=== PATIENT | female | born 1955 | race Caucasian/White ===

== ENCOUNTER → 2017-05-11 | Outpatient (CLI) | payer OTHER ==
[~2017-05-11] MED LIST: ALBINS NEB; ALBUAER19 INH; CPR500 PO; CYCL10TA6 PO; FEXO1TAB46 PO; FLNIN/ NAE; FLUO0.05 TOP; FLUO0.0543 TOP; GUAISYP4 PO; LISI-461 PO; MTR500 PO; PARO30TA4 PO; Promethazine/Codeine PO; RANI300T PO; SNG10 PO; SRVDIN60 INH; WLLSR/200 PO; ZOLP10TA6 PO
--- NOTE | 2017-05-11 10:32 | DIAGNOSTIC IMAGING REPORT ---
ABDOMEN AND PELVIS CT WITH ORAL CONTRAST CT DOSE: 404.80 mGy.cm HISTORY: Left upper and lower abdominal pain. DIVERTICULITIS TECHNIQUE: Multiaxial CT images of the abdomen and pelvis were performed following the use of oral contrast. A dose lowering technique was utilized adhering to the principles of ALARA. COMPARISON STUDY: Abdomen and pelvis CT 01/21/2016. FINDINGS: The lung bases are clear. No pneumoperitoneum. No pneumatosis. No suspicious lytic or blastic osseous lesions. Small fat-containing right inguinal hernia. There are 2 diverticula within the second portion of the duodenum with the largest measuring 2 cm. Cholecystectomy. The unenhanced liver, spleen, kidneys, adrenal glands, and pancreas are unremarkable. No retroperitoneal lymphadenopathy. The bladder is now well-distended but appears unremarkable. The uterus and bilateral adnexa are within normal limits. Anastomotic suture material at the rectosigmoid junction. Colonic diverticulosis. No bowel wall thickening or obstruction. IMPRESSION: 1. No bowel wall thickening or obstruction. 2. Colonic diverticulosis. 3. Postoperative changes as described above. Electronically signed by: Goyo Méndez M.D. 05/11/2017 10:30 AM Dictated Date/Time: 05/11/2017 10:16 AM
== END | disposition home or self-care (01) ==
LOC: C.CTS 09:16
PROVIDERS: ATTEND Family Medicine
DX: K57.32 Diverticulitis of large intestine without perforation or abscess without bleeding (principal); K57.30 Diverticulosis of large intestine without perforation or abscess without bleeding

== ENCOUNTER 2019-03-03 09:19 | Inpatient (IN) ==
[~2019-03-03 09:19] MED LIST changes: -ALBINS NEB; -ALBUAER19 INH; -CPR500 PO; -CYCL10TA6 PO; -FEXO1TAB46 PO; -FLNIN/ NAE; -FLUO0.05 TOP; -FLUO0.0543 TOP; -GUAISYP4 PO; -LISI-461 PO; -MTR500 PO; -PARO30TA4 PO; -Promethazine/Codeine PO; -RANI300T PO; -SNG10 PO; +SODIUM CHLORIDE 0.9% 1000ML 1,000 ML IV SCH; -SRVDIN60 INH; -WLLSR/200 PO; -ZOLP10TA6 PO
--- OUTSIDE RECORDS SUMMARY | 2019-03-03 09:21 | External Medical Summary | Continuity of Care Document ---
:1955 Author Name Trey Solano, Provider Address Unavailable Unavailable , Care Team Providers Name Role Phone Mendoza Jaime M.D. Unavailable [email or web address] JOSE MIGUEL DAVENPORT Unavailable Unavailable Unavailable Unavailable Unavailable Problems Chronic sinusitis (473.9) (J32.9) Esophageal reflux (530.81) (K21.9) Diverticulitis, colon (562.11) (K57.32) Iron deficiency anemia (280.9) (D50.9) Polyp of corpus uteri (621.0) (N84.0) Nasal polyps (471.9) (J33.9) Dyslipidemia (272.4) (E78.5) Impaired fasting glucose (790.21) (R73.01) Benign essential hypertension (401.1) (I10) Allergic rhinitis (477.9) (J30.9) Asthma, persistent (493.90) Cough (786.2) (R05) SOB (shortness of breath) (786.05) (R06.02) Allergies and Adverse Reactions Amoxicillin TABS (Allergy) Reaction: Fabián sea Aspirin TABS (Allergy) Reaction: Other Augmentin TABS (Allergy) Reaction: Nause a Morphine Derivatives (Allergy) Reaction: Other Opioid Analgesics (Allergy) Reaction: Other Animal dander - Cats (Allergy) Reaction: Other Animal dander - Dogs (Allergy) Grass (Allergy) Shrimp (Allergy) Reaction: Hives Trees (Allergy) Medications Zolpidem Tartrate 10 MG Oral Tablet; TAKE 1 TABLET AT BEDTIM E NEEDED. Refills: 0 Albuterol Sulfate (2.5 MG/3ML) 0.083% In halation Nebulization Solution; USE 1 UNIT DOSE IN NEBULIZER EVERY 4 TO 6 HOURS NEEDED. 3 ML Plas Cont (125 Plas Conts) Quantity: 1 Refills: 5 Xopenex HFA 45 MCG/ACT Inhalation Aeroso l; INHALE 1 PUFF EVERY 4 HOURS NEEDED. Refills: 0 buPROPion HCl - 100 MG Oral Tablet; TAKE 1 TABLET TWICE HOLLY Y. Refills: 0 PARoxetine HCl - 30 MG Oral Tablet; TAKE 1 TABLET DAILY D IRECTED. Refills: 0 Lisinopril 10 MG Oral Tablet; TAKE 1 TABLET DAILY. Quantity: 30 Refills: 5 Albuterol Sulfate HFA 108 MCG/ACT AERS; INHALE 2 PUFFS FOUR TIMES DAILY DIRECTED. Refills: 0 Promethazine-Codeine 6.25-10 MG/5ML Oral Syrup; TAKE 5 ML EVERY 4 TO 6 HOURS NEEDED FOR COUGH. Refills: 0 Fluocinonide 0.05 % External Ointment; A PPLY SPARINGLY TO AFFECTED AREA(S) TWICE DAILY 60 GM Tube Quantity: 1 Refills: 1 Cyclobenzaprine HCl - 10 MG Oral Tablet; TAKE 1 TABLET AT BE DTIME NEEDED. Refills: 0 Montelukast Sodium 10 MG Oral Tablet; TAKE 1 TABLET DAILY. 90 Tablet Bottle Quantity: 1 Refills: 3 raNITIdine HCl - 300 MG Oral Tablet; TAKE 1 TABLET AT BEDTIM E. Refills: 0 Fluticasone Propionate 50 MCG/ACT Nasal Suspension; USE 2 SPRAYS IN EACH NOSTRIL TWICE A DAY 16 GM Bottle Quantity: 1 Refills: 5 buPROPion HCl ER (SR) 200 MG Oral Tablet Extended Release 12 Hour; TAKE 1 TABLET TWICE DAILY WITH THE 100 MG DOSE. Refills: 0 Tanya 180 MG TABS; TAKE 1 TABLET DAILY. Refills: 0 Simvastatin 20 MG Oral Tablet; TAKE 1 TABLET AT BEDTIME Quantity: 90 Refills: 1 Ipratropium [place] 0.02 % Inhalation So lution; USE 1 UNIT DOSE IN NEBULIZER 4 TIMES DAILY. 2.5 ML Plas Cont (60 Plas Co nts) Quantity: 2 Refills: 5 Procedures History of Appendectomy Status: Complete d History of Cholecystotomy Status: Comple toribio Immunizations Immunizations not documented Social History - Smoking Status Never smoker Plan of Treatment Planned Observations Planned Goals not documented Results No Known Results Results not documented Encounters Appointment; Mendoza Jaime M.D. 26-May-2016 11:15 Encounter Diagnosis: Problem not documented
[2019-03-03] MEDS ORDERED: OPTIRAY 320 125ml IV PRN (09:28)
[2019-03-03] MEDS ORDERED: TPA for Stroke IV STA (09:35)
--- NOTE | 2019-03-03 09:38 | CT Scan Report ---
CT angio head w con HISTORY: Mental status change cva TECHNIQUE: Multiaxial CT angiography of the head was performed IV contrast: None. Maximum intensit y projection images were also obtained. A dose lowering technique was utilized adhering to the princ ipldelta of JOEL. COMPARISON: None. FINDINGS: There is no mass, hematoma, midline shift, or acute infarct. Visualized intracranial customer marketing intern al carotid arteries, distal vertebral arteries, and basilar artery are widely patent. There is no sig nificant stenosis, occlusion, or aneurysm seen within the bilateral ACAs, MCAs, or cylinder inspector and tester. IMPRESSION: No significant stenosis, occlusion, or aneurysm within the [place]. ACT 112: Negative or not required by law. The above report was generated using voice recognition software. It may contain grammatical, syntax or spelling errors. Electronically signed by: Doroteo Mccord M.D. 03/03/2019 9:37 AM
--- NOTE | 2019-03-03 09:42 | CT Scan Report ---
HEAD CT NONCONTRAST CT DOSE: HISTORY: Stroke symptoms. TECHNIQUE: Multiaxial CT images of the head were performed without the use of intravenous contrast. A utomated exposure control was utilized for this study. A dose lowering technique was utilized adheri ng to the principles of ALARA. Comparison: Head CT 01/21/2016. Findings: Postoperative changes within the paranasal sinuses with a few small nasal polyps, unchanged . The calvarium and skull base are intact. The ventricles and sulci are within normal limits. There i s no mass, hematoma, midline shift, or acute infarct. Impression: No significant change compared to the prior study. No acute intracranial abnormality. ACT 112: Negative or not required by law. Electronically signed by: Goyo Méndez M.D. 03/03/2019 9:41 AM
--- NOTE | 2019-03-03 09:43 | CT Scan Report ---
CT angio neck with con HISTORY: Mental status change cva TECHNIQUE: Multiaxial CT angiography of the neck was performed IV contrast: 100 cc nonionic All leoncio urements were calculated based on NASCET criteria. Maximum intensity projection images were also obt ained. A dose lowering technique was utilized adhering to the principles of ALARA. COMPARISON STUDY: None. FINDINGS: The aortic arch and proximal great vessels are widely patent. There is no significant sten osis, occlusion, or dissection identified within the bilateral common carotid, internal carotid, or v ertebral arteries. IMPRESSION: No significant stenosis, occlusion, or dissection identified within the carotid or vertebral arteries . ACT 112: Negative or not required by law. The above report was generated using voice recognition software. It may contain grammatical, syntax or spelling errors. Electronically signed by: Doroteo Mccord M.D. 03/03/2019 9:41 AM
[2019-03-03] MEDS ORDERED: Alteplase Bolus 7 MG in SYRINGE 0 ML IV ONE (09:45)
[2019-03-03] MEDS ORDERED: ALTEPLASE, RECOMBINANT 62 MG in EMPTY BAG 0 ML IV ONE (09:46)
[2019-03-03] MEDS ORDERED: PRIMARY PLUMSET, PE LINED TUBING, 113 IN, NON-DEHP (2260-0500) IV ONE (09:46)
--- NOTE | 2019-03-03 09:55 | Emergency Department Note ---
Entered by Ila Marin acting as a scribe for History of Present Illness General Chief complaint: Stroke Alert Source: patient and EMS History of Present Illness Onset (ago): minute(s) (58) Location: head Pain Consistency: + other (episode) Quality: + other (stroke-like symptoms) Associated symptoms: + other (bilateral leg weakness, aphasia) The patient is a 64 year old female that is presenting to the Emergency Room with complaints of an episode of stroke-like symptoms that started 58 minutes ago at 0828 this morning. The patient reports bilateral leg weakness. The patie nt called her brother this morning at approximately 8:28 AM. She states that she did not feel right. She was very concerned that she was having a stroke. The patient arrived at the emergency department via ambulance. Received a prehospital notification about the patient. She was made a stroke alert prior to arrival because of right-sided weakness and aphasia. The patient states that she felt symptoms acutely this morning. She denies having any recent trauma but does complain of a headache which is frontal in nature. She denies having any history of anxiety or recent stressors. The patient does have a family history of aneurysms. The patient did not take any medications prior to arrival. She was noted to have difficulty speaking by the prehospital personnel. The patient denies having any chest pain or abdominal pain. She denies having any shortness of breath. Home Medications Home Medications Medication Instructions Recorded Confirmed Type albuterol sulfate 2 puff INHALATION QID PRN 03/03/19 03/03/19 History atorvastatin 40 mg PO HS 03/03/19 03/03/19 History bupropion HCl 300 mg PO QAM 03/03/19 03/03/19 History duloxetine 60 mg PO QAM 03/03/19 03/03/19 History fluticasone furoate-vilanterol 1 inh INHALATION DAILY PRN 03/03/19 03/03/19 History [Breo Ellipta] lisinopril-hydrochlorothiazide 1 tab PO QAM 03/03/19 03/03/19 History metformin 1,000 mg PO QAM 03/03/19 03/03/19 History omeprazole 20 mg PO BID 03/03/19 03/03/19 History zolpidem 5 mg PO HS 03/03/19 03/03/19 History Allergies Allergy/AdvReac Type Severity Reaction Status Date / Time aspirin Allergy Unknown UNKNOWN Verified 03/03/19 10:38 morphine Allergy Unknown Verified 03/03/19 10:38 shrimp Allergy Unknown HIVES Verified 03/03/19 10:38 amoxicillin AdvReac Unknown NAUSEA Verified 03/03/19 10:38 clavulanic acid AdvReac Unknown NAUSEA Verified 03/03/19 10:38 Opioid Analgesics Allergy Unknown UNKNOWN Uncoded 03/03/19 10:38 Unclassified Drugs Allergy Unknown CATS/DOGS/G Uncoded 03/03/19 10:38 RASS/TREES Past Med/Surg History Medical History (Updated 03/03/19 @ 12:29 by Marlene Merritt PA-C) Adjustment reaction (Inactive) Anxiety (Chronic) Asthma (Chronic) Bronchitis Depression (Chronic) Diabetes mellitus, type II Dyslipidemia (Chronic) GERD (gastroesophageal reflux disease) (Chronic) History of right bundle branch block (RBBB) (Chronic) "1st noted in 2001" Hypertension (Chronic) RADHA (iron deficiency anemia) (Chronic) SOB (shortness of breath) (Inactive) Surgical History H/O colonoscopy (Inactive) H/O cystoscopy (Inactive) History of esophagogastroduodenoscopy (EGD) (Inactive) History of mandibular surgery (Inactive) S/P appendectomy (Inactive) S/P blepharoplasty (Inactive) S/P cholecystectomy (Inactive) S/P foot surgery (Inactive) S/P partial colectomy (Inactive) Status post hysteroscopic polypectomy (Inactive) Family History Other Asthma Breast cancer Diabetes Hypertension Social History Preferred Language: Italian Communication Ability: Effective Spike Driver Required: No Beliefs That Will Affect Care: None marital status: Single Current Living Situation: Family Current Living Situation Comment: lives with nephew current occupational status: unemployed and disabled Other Information That Helps Us Care for You: No Feels Safe at Home: Yes Safety Concerns: Feels Safe At This Time Smoking Status: Never smoker Do You Dip or Chew Tobacco: No ; Second Hand Exposure: No ; Tobacco Cessation Education Requested by Patient: No Hx Alcohol Use: No Hx Substance Use: No Review of Systems See HPI for pertinent positives & negatives. and A total of 10 systems reviewed and were otherwise negative Physical Exam Vital Signs Vital Signs - 24 hr 03/03/19 09:36 03/03/19 09:38 03/03/19 09:40 Temperature 37.0 C Temperature Source Oral Pulse Rate 105 H 105 H 105 H Pulse Rate [Left] Pulse Rate from SpO2 Sensor 106 H 105 H Respiratory Rate 20 25 H 23 Respiratory Effort / Characteristics Non-Labored Spontaneous Respiratory Depth Normal Blood Pressure 152/122 H 152/122 H Blood Pressure [Left Arm] Blood Pressure Mean 132 134 Blood Pressure Mean [Left Arm] Blood Pressure Position Lying Blood Pressure Position [Left Arm] Pulse Oximetry 96 96 96 Oxygen Delivery Method Room Air Sepsis Recent Fever Within 48 Hours No Sepsis New/Unexplained Change in Mental Status No Sepsis Action Taken by Nursing No Action Required 03/03/19 09:45 03/03/19 09:51 03/03/19 10:00 Temperature Temperature Source Pulse Rate 106 H 104 H Pulse Rate [Left] Pulse Rate from SpO2 Sensor 106 H 104 H Respiratory Rate 23 18 Respiratory Effort / Characteristics Respiratory Depth Blood Pressure Blood Pressure [Left Arm] Blood Pressure Mean Blood Pressure Mean [Left Arm] Blood Pressure Position Blood Pressure Position [Left Arm] Pulse Oximetry 95 96 Oxygen Delivery Method Room Air Sepsis Recent Fever Within 48 Hours Sepsis New/Unexplained Change in Mental Status Sepsis Action Taken by Nursing 03/03/19 10:01 03/03/19 10:10 03/03/19 10:11 Temperature Temperature Source Pulse Rate 104 H 106 H 104 H Pulse Rate [Left] 105 H 104 H Pulse Rate from SpO2 Sensor 104 H 106 H 106 H Respiratory Rate 24 28 H 25 H Respiratory Effort / Characteristics Non-Labored Spontaneous Non-Labored Spontaneous Respiratory Depth Blood Pressure 152/98 H 154/90 H Blood Pressure [Left Arm] 152/98 H 154/90 H Blood Pressure Mean 111 92 Blood Pressure Mean [Left Arm] 116 111 Blood Pressure Position Blood Pressure Position [Left Arm] Lying Lying Pulse Oximetry 95 96 96 Oxygen Delivery Method Room Air Room Air Sepsis Recent Fever Within 48 Hours Sepsis New/Unexplained Change in Mental Status Sepsis Action Taken by Nursing 03/03/19 10:20 03/03/19 10:21 03/03/19 10:30 Temperature Temperature Source Pulse Rate 102 H 103 H 103 H Pulse Rate [Left] Pulse Rate from SpO2 Sensor 103 H 102 H 102 H Respiratory Rate 19 22 22 Respiratory Effort / Characteristics Respiratory Depth Blood Pressure 160/104 H 140/104 H Blood Pressure [Left Arm] Blood Pressure Mean 118 120 Blood Pressure Mean [Left Arm] Blood Pressure Position Blood Pressure Position [Left Arm] Pulse Oximetry 96 95 95 Oxygen Delivery Method Sepsis Recent Fever Within 48 Hours Sepsis New/Unexplained Change in Mental Status Sepsis Action Taken by Nursing 03/03/19 10:32 03/03/19 10:40 Temperature Temperature Source Pulse Rate 102 H 100 H Pulse Rate [Left] Pulse Rate from SpO2 Sensor 102 H 101 H Respiratory Rate 25 H 22 Respiratory Effort / Characteristics Respiratory Depth Blood Pressure 149/99 H Blood Pressure [Left Arm] Blood Pressure Mean 121 Blood Pressure Mean [Left Arm] Blood Pressure Position Blood Pressure Position [Left Arm] Pulse Oximetry 95 96 Oxygen Delivery Method Sepsis Recent Fever Within 48 Hours Sepsis New/Unexplained Change in Mental Status Sepsis Action Taken by Nursing GENERAL: The patient is awake and alert. The patient is very anxious appearing. Her speech is stuttering. EYES: The conjunctivae are clear. The pupils are round and reactive. EARS, NOSE, MOUTH AND THROAT: The nose is without any evidence of any deformity. Mucous membranes are moist.Tongue is midline NECK: The neck is nontender and supple. RESPIRATORY: Normal respiratory effort is noted. There is no evidence of w heezing rhonchi or rales to auscultation. CARDIOVASCULAR: Tachycardic rate with regular rhythm was noted. No definite murmur was noted. GASTROINTESTINAL: The abdomen is soft. Bowel sounds are present in all quadrants. Abdomen is nontender. MUSCULOSKELETAL/EXTREMITIES: There is no evidence of gross deformity. Full range of motion is noted in the hips and shoulders. SKIN: There is no obvious evidence of any rash. There are no petechiae, pallor or cyanosis noted. NEUROLOGIC: Patient is awake alert and oriented x3. Her speech is stuttering but her words are mostly understandable. Strength was diminished in both lower extremities. Strength was diminished in both upper extremities. Vegetable Canner strength is diminished in the right upper extremity compared to left but only minimally. Patient is able to hold the legs off the bed for greater than 5 seconds. Course Course 905: Medical Command call was taken and a stroke alert was called. 919: Stroke alert was called after Medical Command call. Patient was taken straight to CT upon arrival and a history and physical were performed at this time. 0924: I discussed the patients case with Dr. Mesa, Neurology [facility], who will evaluate the patient via the Telestroke. 0931: Patient arrived in room A01. tPA has been ordered pending CT results and patient evaluation. 0959: 152/102 BP at this time. Labetalol is being ordered to lower the patients blood pressure. Speech is improving. 1005: After evaluating the patient, Dr. Mesa patient sx rapidly improving no clear indication for tPA at this time. BP is 152/98 without treatment. Holding Labetalol pending repeat BP check. 1030: I discussed the patients case with DOMINIC Hoffman, who will evaluate the patient for further management and care with Dr. Guerin as the attending physician. Administered Medications Enoxaparin Sodium (Lovenox) 40 mg SQ Q24H QUINCY Stop: 04/02/19 13:59 Last Admin: 03/03/19 16:42 Dose: 40 mg Documented by: [id number] Insulin Aspart (Novolog Flexpen) 0 units SC ACHS QUINCY Stop: 04/02/19 13:27 Last Admin: 03/03/19 17:23 Dose: Not Given Documented by: [id number] Cosigned by: [id number] Admin: 03/03/19 15:34 Dose: Not Given Documented by: [id number] Cosigned by: [id number] Discontinued Medications Alteplase, Recombinant (Activase For Stroke) 1 ea IV NOW STA; Protocol Stop: 03/03/19 09:36 Last Admin: 03/03/19 16:03 Dose: Not Given Documented by: [id number] Sodium Chloride (Nss 1000ml) 1,000 mls @ 50 mls/hr IV .Q20H QUINCY Stop: 04/02/19 09:14 Last Infusion: 03/03/19 16:04 Dose: 0 mls/hr Documented by: [id number] Admin: 03/03/19 10:04 Dose: 50 mls/hr Documented by: [id number] Alteplase, Recombinant 7 mg/ (Syringe) 7 mls @ 7 mls/min IV ONCE ONE Stop: 03/03/19 09:46 Last Admin: 03/03/19 16:03 Dose: Not Given Documented by: [id number] Alteplase, Recombinant 62 mg/ (EMPTY BAG) 62 mls @ 62 mls/hr IV ONCE ONE Stop: 03/03/19 09:47 Last Admin: 03/03/19 16:03 Dose: Not Given Documented by: [id number] Ioversol (Optiray 320 125ml) 119 ml IV ONCE PRN PRN Reason: Interaction Checking Stop: 03/07/19 09:27 Last Admin: 03/03/19 09:29 Dose: 119 ml Documented by: [id number] Labetalol HCl (Normodyne) 20 mg IV NOW STA Stop: 03/03/19 10:02 Last Admin: 03/03/19 10:44 Dose: Not Given Documented by: [id number] Medical Decision Making Differential Diagnosis Differential Diagnosis includes but is not limited to ischemic Stroke, hemorrhagic stroke, bells palsy, mass, neoplasm, migraine headache, seizure, subarachnoid hemorrhage, TIA, and transient global amnesia. Medical Records Attestation: I reviewed the patient's medical records. Home Medications Current Medication List: was personally reviewed by me Laboratory Data Attestation: I reviewed the patient's lab results. Result diagrams: 03/03/19 09:40 03/03/19 09:40 Lab Results 03/03/19 03/03/19 03/03/19 Range/Units 09:40 09:40 09:40 WBC 9.14 (4.8-10.8) K/uL RBC 3.95 L (4.2-5.4) M/uL Hgb 11.3 L (12.0-16.0) g/dL Hct 35.2 L (37-47) % MCV 89.1 (80-100) fL MCH 28.6 (25-34) pg MCHC 32.1 (32-36) g/dL RDW Std Deviation 41.3 (36.4-46.3) fL RDW Coeff of Nilda 12.8 (11.5-14.5) % Plt Count 355 (130-400) K/uL MPV 9.2 (7.4-10.4) fL Immature Gran % (Auto) 0.2 % Neut % (Auto) 62.4 % Lymph % (Auto) 24.3 % [place] % (Auto) 10.9 % Eos % (Auto) 1.8 % Baso % (Auto) 0.4 % Immature Gran # (Auto) 0.02 (0.00-0.02) K/uL Neut # (Auto) 5.70 (1.4-6.5) K/uL Lymph # (Auto) 2.22 (1.2-3.4) K/uL [place] # (Auto) 1.00 H (0.11-0.59) K/uL Eos # (Auto) 0.16 (0-0.5) K/uL Baso # (Auto) 0.04 (0-0.2) K/uL PT 10.5 (9.0-12.0) Seconds INR 1.0 (0.9-1.1) APTT 25.1 (21.0-31.0) Seconds PTT Ratio 0.9 Sodium 133 L (136-145) mmol/L Potassium 4.2 (3.5-5.1) mmol/L Chloride 101 (98-107) mmol/L Carbon Dioxide 26 (21-32) mmol/L Anion Gap 6.0 (3-11) BUN 16 (7-18) mg/dl Creatinine 1.12 (0.6-1.2) mg/dl Est Cr Clr Drug Dosing 48.2 ml/min Est GFR ( Amer) 60.5 Est GFR (Non-Af Amer) 52.2 BUN/Creatinine Ratio 14.5 (10-20) Glucose 148 H (70-99) mg/dl POC Glucose (70-99) Calcium 8.3 L (8.5-10.1) mg/dl Magnesium 1.9 (1.8-2.4) mg/dl Total Bilirubin 0.4 (0.2-1) mg/dl AST 24 (15-37) U/L ALT 61 (12-78) U/L Alkaline Phosphatase 88 (45-117) U/L Troponin I < 0.015 (0-0.045) ng/ml Total Protein 6.7 (6.4-8.2) gm/dl Albumin 3.3 L (3.4-5.0) gm/dl Globulin 3.4 (2.5-4.0) gm/dl Albumin/Globulin Ratio 1.0 (0.9-2) Specimen Hemolysis Blood Type Antibody Screen 03/03/19 03/03/19 Range/Units 09:40 09:40 WBC (4.8-10.8) K/uL RBC (4.2-5.4) M/uL Hgb (12.0-16.0) g/dL Hct (37-47) % MCV (80-100) fL MCH (25-34) pg MCHC (32-36) g/dL RDW Std Deviation (36.4-46.3) fL RDW Coeff of Nilda (11.5-14.5) % Plt Count (130-400) K/uL MPV (7.4-10.4) fL Immature Gran % (Auto) % Neut % (Auto) % Lymph % (Auto) % [place] % (Auto) % Eos % (Auto) % Baso % (Auto) % Immature Gran # (Auto) (0.00-0.02) K/uL Neut # (Auto) (1.4-6.5) K/uL Lymph # (Auto) (1.2-3.4) K/uL [place] # (Auto) (0.11-0.59) K/uL Eos # (Auto) (0-0.5) K/uL Baso # (Auto) (0-0.2) K/uL PT (9.0-12.0) Seconds INR (0.9-1.1) APTT (21.0-31.0) Seconds PTT Ratio Sodium (136-145) mmol/L Potassium (3.5-5.1) mmol/L Chloride (98-107) mmol/L Carbon Dioxide (21-32) mmol/L Anion Gap (3-11) BUN (7-18) mg/dl Creatinine (0.6-1.2) mg/dl Est Cr Clr Drug Dosing ml/min Est GFR ( Amer) Est GFR (Non-Af Amer) BUN/Creatinine Ratio (10-20) Glucose (70-99) mg/dl POC Glucose 142 H (70-99) Calcium (8.5-10.1) mg/dl Magnesium (1.8-2.4) mg/dl Total Bilirubin (0.2-1) mg/dl AST (15-37) U/L ALT (12-78) U/L Alkaline Phosphatase (45-117) U/L Troponin I (0-0.045) ng/ml Total Protein (6.4-8.2) gm/dl Albumin (3.4-5.0) gm/dl Globulin (2.5-4.0) gm/dl Albumin/Globulin Ratio (0.9-2) Specimen Hemolysis Blood Type A Negative Antibody Screen NEGATIVE Imaging Data Radiologist's Impression: Radiology results as stated below per my review and the radiologist's interpretation: XR chest 1V portable CLINICAL HISTORY: cva dyspnea COMPARISON STUDY: 01/21/2016 FINDINGS: The bones soft tissues and hemidiaphragms are normal. The cardiomediastinal silhouette is normal. The lungs are clear. The pulmonary vasculature is normal. IMPRESSION: Negative chest. ACT 112: Negative or not required by law. The above report was generated using voice recognition software. It may contain grammatical, syntax or spelling errors. Electronically signed by: Doroteo Mccord M.D. 03/03/2019 10:[address] CT DOSE: HISTORY: Stroke symptoms. TECHNIQUE: Multiaxial CT images of the head were performed without the use of intravenous contrast. Automated exposure control was utilized for this study. A dose lowering technique was utilized adhering to the principles of ALARA. Comparison: Head CT 01/21/2016. Findings: Postoperative changes within the paranasal sinuses with a few small nasal polyps, unchanged. The calvarium and skull base are intact. The ventricles and sulci are within normal limits. There is no mass, hematoma, midline shift, or acute infarct. Impression: No significant change compared to the prior study. No acute intracranial abnormality. ACT 112: Negative or not required by law. Electronically signed by: Goyo Méndez M.D. 03/03/2019 9:[address] angio head w con HISTORY: Mental status change cva TECHNIQUE: Multiaxial CT angiography of the head was performed IV contrast: None. Maximum intensity projection images were also obtained. A dose lowering technique was utilized adhering to the principles of ALARA. COMPARISON: None. FINDINGS: There is no mass, hematoma, midline shift, or acute infarct. Visualized intracranial internal carotid arteries, distal vertebral arteries, and basilar artery are widely patent. There is no significant stenosis, occlusion, or aneurysm seen within the bilateral ACAs, MCAs, or crop adjuster. IMPRESSION: No significant stenosis, occlusion, or aneurysm within the [place]. ACT 112: Negative or not required by law. The above report was generated using voice recognition software. It may contain grammatical, syntax or spelling errors. Electronically signed by: Doroteo Mccord M.D. 03/03/2019 9:[address] angio neck with con HISTORY: Mental status change cva TECHNIQUE: Multiaxial CT angiography of the neck was performed IV contrast: 100 cc nonionic All measurements were calculated based on NASCET criteria. Maximum intensity projection images were also obtained. A dose lowering technique was utilized adhering to the principles of ALARA. COMPARISON STUDY: None. FINDINGS: The aortic arch and proximal great vessels are widely patent. There is no significant stenosis, occlusion, or dissection identified within the bilateral common carotid, internal carotid, or vertebral arteries. IMPRESSION: No significant stenosis, occlusion, or dissection identified within the carotid or vertebral arteries. ACT 112: Negative or not required by law. The above report was generated using voice recognition software. It may contain grammatical, syntax or spelling errors. Electronically signed by: Doroteo Mccord M.D. 03/03/2019 9:41 AM ECG Data Attestation: I personally reviewed and interpreted this ECG as follows: Indication: + weakness Rate (beats per minute): 104 Rhythm: + sinus tachycardia ECG Intervals/blocks: + Right Bundle branch block ECG Findings: no PVCs Comparison ECG Date: from (01/21/16) Change: no significant change Blood Pressure Blood Pressure Findings: Elevated blood pressure Blood Pressure Disposition: elevated BP felt to be situational MDM Narrative The patient is a 64-year-old female who presented to the emergency department for an evaluation of strokelike symptoms. The patient was having aphasia but also was noted to have right-sided weakness prior to arrival. On my examination the patient appears to have diminished strength which is bilateral in the lower extremities but also has stuttering speech. The patient's symptoms seem to wax and wane while she was in the emergency department. CT of the head did not show any acute disease. The patient had a normal CT angiography the head and neck. I discussed the patient's condition with the stroke neurologist at [facility]. At this time TPA was not recommended given the patient's waxing and waning of her symptoms. I discussed the patient's condition with her. I also discussed the patient's laboratory and radiographic studies with her and her family members. I discussed her case with the on-call [facility] hospitalist group. They have agreed to evaluate the patient in the emergency department for further management and disposition. Impression & Plan Aphasia, Weakness, Neurological symptoms Discharge Plan Visit Data *Final* Discharge Date/Time: 03/03/19 12:02 Chief Complaint: Stroke Alert ED Provider: [facility] Discharge Problem: Aphasia, Weakness, Neurological symptoms Patient Disposition: Admitted As Inpatient Discharge Instructions Interventions: ED Discharge Assessment Last Done: 03/03/19 12:02 The scribe's documentation has been prepared under my direction and personally reviewed by me in its entirety. I confirm that the note above accurately reflects all work, treatment, procedures, and medical decision making performed by me.
[2019-03-03 09:59] LABS: Basophils # (auto) 0.04 K/uL (0-0.2); Basophils % (auto) 0.4 %; Eosinophils # (auto) 0.16 K/uL (0-0.5); Eosinophils % (auto) 1.8 %; Hematocrit (blood only) 35.2 % (37-47); Hemoglobin 11.3 g/dL (12.0-16.0); Immature Granulocytes # (auto) 0.02 K/uL (0.00-0.02); Immature Granulocytes % (auto) 0.2 %; Lymphocytes # (auto) 2.22 K/uL (1.2-3.4); Lymphocytes % (auto) 24.3 %; Mean Corpuscular Hemoglobin 28.6 pg (25-34); Mean Corpuscular Hgb Conc 32.1 g/dL (32-36); Mean Corpuscular Volume 89.1 fL (80-100); Mean Platelet Volume 9.2 fL (7.4-10.4); Monocytes % (auto) 10.9 %; Neutrophils % (auto) 62.4 %; Platelet Count 355 K/uL (130-400); RDW Coefficient of Variation 12.8 % (11.5-14.5); RDW Standard Deviation 41.3 fL (36.4-46.3); Red Blood Count 3.95 M/uL (4.2-5.4); White Blood Count 9.14 K/uL (4.8-10.8)
[2019-03-03] MEDS ORDERED: LABETALOL HCL IV 5 MG/ML 20ML IV STA (10:01)
[2019-03-03 10:12] LABS: Partial Thromboplastin Ratio 0.9; Partial Thromboplastin Time 25.1 Seconds (21.0-31.0); Prothrombin Time 10.5 Seconds (9.0-12.0)
[2019-03-03 10:24] LABS: Alanine Aminotransferase 61 U/L (12-78); Albumin Level 3.3 gm/dl (3.4-5.0); Alkaline Phosphatase 88 U/L (45-117); Aspartate Aminotransferase 24 U/L (15-37); BUN Creatinine Ratio 14.5 (10-20); Bilirubin,Total 0.4 mg/dl (0.2-1); Blood Urea Nitrogen 16 mg/dl (7-18); Calcium 8.3 mg/dl (8.5-10.1); Carbon Dioxide 26 mmol/L (21-32); Chloride 101 mmol/L (98-107); Creatinine Clr Calc Pharmacy 48.2 ml/min; Est GFR (African American) 60.5; Est GFR (Non-African American) 52.2; Globulin 3.4 gm/dl (2.5-4.0); Glucose 148 mg/dl (70-99); Magnesium 1.9 mg/dl (1.8-2.4); Potassium 4.2 mmol/L (3.5-5.1); Sodium 133 mmol/L (136-145); Total Protein 6.7 gm/dl (6.4-8.2); Troponin I < 0.015 ng/ml (0-0.045)
--- NOTE | 2019-03-03 10:26 | XRay Report ---
XR chest 1V portable CLINICAL HISTORY: cva dyspnea COMPARISON STUDY: 01/21/2016 FINDINGS: The bones soft tissues and hemidiaphragms are normal. The cardiomediastinal silhouette is n ormal. The lungs are clear. The pulmonary vasculature is normal. IMPRESSION: Negative chest. ACT 112: Negative or not required by law. The above report was generated using voice recognition software. It may contain grammatical, syntax or spelling errors. Electronically signed by: Doroteo Mccord M.D. 03/03/2019 10:25 AM
--- NOTE | 2019-03-03 11:23 | History & Physical Report ---
Date of Service March 03, 2019 Assessment & Plan (1) Stroke-like symptoms: Pt is 64 y/o F with PMH DM II, HTN, dyslipidemia, anxiety, asthma, GERD presented to ER with c/o blurry vision and bilateral upper and lower paresthesias today starting at 8:00AM. Also reports stuttering and bilateral leg heaviness In ER initial P: 105 and BP: 152/122 down to 154/90 without any medications given. Corrected Na: 134 for glucose of 148. No other significant electrolyte abnormalities. Negative troponin. CTA HEAD: No significant stenosis, occlusion, or aneurysm within the samish of Francis. CTA NECK: No significant stenosis, occlusion, or dissection identified within the carotid or vertebral arteries. DDX: TIA, Stroke, anxiety -Had tele stroke eval in ER with Dr Mesa and no TPA was recommended -Tele to monitor for arrhythmias -Lipid panel, A1c in AM -MRI brain -Echo -PT/OT consult -Continue atorvastatin -Consider starting Plavix pending further workup and neurology recommendations -Neurology consult (2) Diabetes mellitus, type II: A1c: 6.7 on 07/04/18 -Hold metformin -Novolog sliding scale per protocol (3) Hypertension: -Continue lisinopril/HCTZ (4) Dyslipidemia: -Continue atorvastatin (5) Asthma: -Continue albuterol prn (6) Anxiety: -Continue duloxetine, bupropion (7) GERD (gastroesophageal reflux disease): -Continue PPI DVT Prophylaxis -Lovenox SQ Full Code as per discussion with pt Follows with Dr Ashton for routine care Pt was seen and care coordinated with Dr Pink. See addendum History of Present Illness Chief Complaint: Paresthesias, visual disturbance Primary Care Provider: Heidi Ashton MD Pt is 64 y/o F with PMH DM II, HTN, dyslipidemia, anxiety, asthma, GERD presented to ER with c/o visual disturbance and paresthesias today. Pt states approx 8:00AM today was reading newspaper when started with blurry vision followed by feeling shaky and had trouble talking and stuttering. Also reports feeling lightheaded and had posterior NAVARRETE. Reports paresthesias to head followed by paresthesias to bilateral arms and legs. She reports feeling bilateral leg "heaviness" and difficulty walking. Denies fall. Pt denies increased anxiety. She reports baseline tremor of arms. Denies fever/chills, diaphoresis, N/V/D/C, syncope, vision loss, neck pain, CP, SOB, orthopnea, palpitations, cough, sore throat, choking, otalgia, rhinorrhea, abdominal pain, extremity edema, rashes, urinary symptoms. Since being in ER pt reports NAVARRETE almost resolved and paresthesias are intermittent. Reports feels like strength has improved. She does report feels anxious since being in ER. Denies further blurry vision. Pt had tele stroke evaluation in ER and no TPA was recommended. Allergies Allergy/AdvReac Type Severity Reaction Status Date / Time aspirin Allergy Unknown UNKNOWN Verified 03/03/19 10:38 morphine Allergy Unknown Verified 03/03/19 10:38 shrimp Allergy Unknown HIVES Verified 03/03/19 10:38 amoxicillin AdvReac Unknown NAUSEA Verified 03/03/19 10:38 clavulanic acid AdvReac Unknown NAUSEA Verified 03/03/19 10:38 Opioid Analgesics Allergy Unknown UNKNOWN Uncoded 03/03/19 10:38 Unclassified Drugs Allergy Unknown CATS/DOGS/G Uncoded 03/03/19 10:38 RASS/TREES Home Medications Home Medications Medication Instructions Recorded Confirmed Type albuterol sulfate 2 puff INHALATION QID PRN 03/03/19 03/03/19 History atorvastatin 40 mg PO HS 03/03/19 03/03/19 History bupropion HCl 300 mg PO QAM 03/03/19 03/03/19 History duloxetine 60 mg PO QAM 03/03/19 03/03/19 History fluticasone furoate-vilanterol 1 inh INHALATION DAILY PRN 03/03/19 03/03/19 History [Breo Ellipta] lisinopril-hydrochlorothiazide 1 tab PO QAM 03/03/19 03/03/19 History metformin 1,000 mg PO QAM 03/03/19 03/03/19 History omeprazole 20 mg PO BID 03/03/19 03/03/19 History zolpidem 5 mg PO HS 03/03/19 03/03/19 History Past Med/Surg History Medical History (Updated 03/03/19 @ 12:29 by Marlene Merritt PA-C) Adjustment reaction (Inactive) Anxiety (Chronic) Asthma (Chronic) Bronchitis Depression (Chronic) Diabetes mellitus, type II Dyslipidemia (Chronic) GERD (gastroesophageal reflux disease) (Chronic) History of right bundle branch block (RBBB) (Chronic) "1st noted in 2001" Hypertension (Chronic) RADHA (iron deficiency anemia) (Chronic) SOB (shortness of breath) (Inactive) Surgical History H/O colonoscopy (Inactive) H/O cystoscopy (Inactive) History of esophagogastroduodenoscopy (EGD) (Inactive) History of mandibular surgery (Inactive) S/P appendectomy (Inactive) S/P blepharoplasty (Inactive) S/P cholecystectomy (Inactive) S/P foot surgery (Inactive) S/P partial colectomy (Inactive) Status post hysteroscopic polypectomy (Inactive) Family History Other Asthma Breast cancer Diabetes Hypertension Social History Preferred Language: Yi Communication Ability: Effective Fagot Heater Helper Required: No Beliefs That Will Affect Care: None marital status: Single Current Living Situation: Family Current Living Situation Comment: lives with nephew current occupational status: unemployed and disabled Other Information That Helps Us Care for You: No Feels Safe at Home: Yes Safety Concerns: Feels Safe At This Time Smoking Status: Never smoker Do You Dip or Chew Tobacco: No ; Second Hand Exposure: No ; Tobacco Cessation Education Requested by Patient: No Hx Alcohol Use: No Hx Substance Use: No Review of Systems Review of Systems: All systems reviewed & are unremarkable except as noted in HPI & below Physical Exam Physical Exam: General: no acute distress, WDWN Head: normocephalic, atraumatic Eyes: PERRL, EOM's intact, no nystagmus, conjunctiva non-injected, anicteric ENT: normal inspection external ears, nose, mucous membranes moist Neck: supple, trachea midline Lungs: clear, no respiratory distress, no wheezing/rhonchi/rales CV: RRR, no murmur, no pretibial edema Abd: normal BS, soft, non-tender Ext: no cyanosis, no calf tenderness Neuro: A&O x 3, mildly anxious appearing, ?decreased right lateral visual field (initial exam with right lateral visual field deficit followed by repeat with no reported deficit, Facial sensation is intact and symmetric, The face is strong and symmetric, Hearing grossly intact, Soft palate elevates symmetrically, +stuttering speech, Shoulder shrug intact, Tongue is midline, normal movement, no fasciculations, No pronator drift, 5/5 strength upper and lower extremities at time of exam, finger to nose intact Skin: warm, dry Results & Data Vital Signs (Past 12 Hours) Vital Signs Temp Pulse Pulse Resp BP BP Pulse Ox 03/03/19 10:40 100 H 22 149/99 H 96 03/03/19 10:32 102 H 25 H 95 03/03/19 10:30 103 H 22 140/104 H 95 03/03/19 10:21 103 H 22 95 03/03/19 10:20 102 H 19 160/104 H 96 03/03/19 10:11 104 H 104 H 25 H 154/90 H 154/90 H 96 03/03/19 10:10 106 H 28 H 96 03/03/19 10:01 104 H 105 H 24 152/98 H 152/98 H 95 03/03/19 10:00 104 H 18 96 03/03/19 09:51 106 H 23 95 03/03/19 09:40 105 H 23 96 03/03/19 09:38 105 H 25 H 152/122 H 96 03/03/19 09:36 37.0 C 105 H 20 152/122 H 96 Laboratory Results Short CBC 03/03/19 Range/Units 09:40 WBC 9.14 (4.8-10.8) K/uL Hgb 11.3 L (12.0-16.0) g/dL Hct 35.2 L (37-47) % Plt Count 355 (130-400) K/uL BMP 03/03/19 09:40 Sodium 133 L Potassium 4.2 Chloride 101 Carbon Dioxide 26 BUN 16 Creatinine 1.12 Glucose 148 H Calcium 8.3 L Cardiac Enzymes 03/03/19 Range/Units 09:40 Troponin I < 0.015 (0-0.045) ng/ml Liver Function 03/03/19 Range/Units 09:40 Total Bilirubin 0.4 (0.2-1) mg/dl AST 24 (15-37) U/L ALT 61 (12-78) U/L Alkaline Phosphatase 88 (45-117) U/L Albumin 3.3 L (3.4-5.0) gm/dl Diagnostic Findings CT HEAD: Impression: No significant change compared to the prior study. No acute intracranial abnormality. CTA HEAD: IMPRESSION: No significant stenosis, occlusion, or aneurysm within the samish of Francis. CTA NECK: IMPRESSION: No significant stenosis, occlusion, or dissection identified within the carotid or vertebral arteries. CXR: IMPRESSION: Negative chest. ECG Rate (beats per minute): 104 Rhythm: sinus rhythm Findings: + RBBB Code Status & VTE Plan VTE Prophylaxis Plan VTE Prophylaxis will be ordered: Yes Supervising Physician Co-Signing Physician Notes HISTORY: Record reviewed. Patient interviewed and examined in ED. Care coordinated with Marlene Merritt PA-C. Please refer to her documentation for complete history. Briefly, 64 YO female with history of hypertension, DM type 2, anxiety, depression, essential tremor, and other problems as noted. Experienced blurred vision, posterior headache, diffuse paresthesiae and weakness this morning while reading paper. Had difficulty speaking (has chronic speech impediment, but worse that usual). Headache and visual changes gradually improved. Still feels weak and has persistent paresthesiae (perioral, arms, legs). Had an episode of bilateral leg weakness last evening, but did not fall. Has been under a lot of stress due to recent passing of close friend; has also lost close family members in recent years. Not sleeping well. Problems with short term memory- followed by Dr. Erin Alonso for neurocognitive issues. Has been on a large number of medications in past. PCP, Neuro, Pharmacy have been trying to work on polypharmacology and have been weaning meds over past 1-2 years. Has been weaning off zolpidem and using melatonin instead. EXAM: General- no distress Lungs- clear to auscultation; no respiratory distress Cardiovascular- RRR, tachy; no murmur or gallop appreciated; no JVD; no pretibial edema Neuro- alert, oriented to person, place, date, current and last 2 presidents resting tremor of head and upper extremities pupils equal, reactive to light has some difficulty with EOMI testing, but grossly intact has difficulty with visual field testing (pt reports chronically poor peripheral vision) no facial palsy dysarthric / stuttering (similar to baseline) motor upper extremities essentially 5/5 motor strength lower extremities ~ 4/5 proximally and distally bilaterally patellar DTR's 0-1/2 bilat plantar reflexes equivocally upgoing bilat ? withdrawal difficulty with bilateral finger to nose testing due to tremor DATA: Hgb 11.3. Na 133, K 4.2, Mg 1.9, Ca 8.3 (with albumin of 3.3, corrected Ca = 8.9), random glucose 148. Other lab studies as noted. Chest x-ray unremarkable. CT head, CTA of head and neck unremarkable. EKG performed at [address] at 104 / minute, RBBB. ASSESSMENT AND PLAN: Headache / blurred vision / diffuse paresthesiae / generalized weakness. ? cerebrovascular event. CT head and CTA of head and neck unrevealing. ED obtained telestroke consultation with [facility] [place]- thrombolytic therapy not recommended. Check MRI brain (although it may be limited due to essential tremor). Diffuse paresthesiae. Lytes [place]. Consider hyperventilation. Anxiety, depression, sleep deprivation may be contributing to some of her symptoms. Consult Neuro. PT / OT / SALES SERVICE EXECUTIVE chip. BP elevated on arrival to ED, improved (after receiving IV labetalol). Suspect episodic elevation. Follow and titrate Rx. Please refer to MAINE Merritt's documentation for discussion of other issues.
--- NOTE | 2019-03-03 12:39 | Communication Note ---
Date of Service: March 03, 2019 HISTORY: Record reviewed. Patient interviewed and examined in ED. Care coordinated with Marlene Merritt PA-C. Please refer to her documentation for complete history. Briefly, 64 YO female with history of hypertension, DM type 2, anxiety, depression, essential tremor, and other problems as noted. Experienced blurred vision, posterior headache, diffuse paresthesiae and weakness this morning while reading paper. Had difficulty speaking (has chronic speech impediment, but worse that usual). Headache and visual changes gradually improved. Still feels weak and has persistent paresthesiae (perioral, arms, legs). Had an episode of bilateral leg weakness last evening, but did not fall. Has been under a lot of stress due to recent passing of close friend; has also lost close family members in recent years. Not sleeping well. Problems with short term memory- followed by Dr. Erin Alonso for neurocognitive issues. Has been on a large number of medications in past. PCP, Neuro, Pharmacy have been trying to work on polypharmacology and have been weaning meds over past 1-2 years. Has been weaning off zolpidem and using melatonin instead. EXAM: General- no distress Lungs- clear to auscultation; no respiratory distress Cardiovascular- RRR, tachy; no murmur or gallop appreciated; no JVD; no pretibial edema Neuro- alert, oriented to person, place, date, current and last 2 presidents resting tremor of head and upper extremities pupils equal, reactive to light has some difficulty with EOMI testing, but grossly intact has difficulty with visual field testing (pt reports chronically poor peripheral vision) no facial palsy dysarthric / stuttering (similar to baseline) motor upper extremities essentially 5/5 motor strength lower extremities ~ 4/5 proximally and distally bilaterally patellar DTR's 0-1/2 bilat plantar reflexes equivocally upgoing bilat ? withdrawal difficulty with bilateral finger to nose testing due to tremor DATA: Hgb 11.3. Na 133, K 4.2, Mg 1.9, Ca 8.3 (with albumin of 3.3, corrected Ca = 8.9), random glucose 148. Other lab studies as noted. Chest x-ray unremarkable. CT head, CTA of head and neck unremarkable. EKG performed at [address] at 104 / minute, RBBB. ASSESSMENT AND PLAN: Headache / blurred vision / diffuse paresthesiae / generalized weakness. ? cerebrovascular event. CT head and CTA of head and neck unrevealing. ED obtained telestroke consultation with [facility] [place]- thrombolytic therapy not recommended. Check MRI brain (although it may be limited due to essential tremor). Diffuse paresthesiae. Lytes OK. Consider hyperventilation. Anxiety, depression, sleep deprivation may be contributing to some of her symptoms. Consult Neuro. PT / OT / VELVET STEAMER evals. BP elevated on arrival to ED, improved. Suspect episodic elevation. Follow and titrate Rx. Please refer to MAINE Merritt's documentation for discussion of other issues.
[2019-03-03] MEDS ORDERED: ACETAMINOPHEN 325 MG TAB PO PRN (13:28)
[2019-03-03] MEDS ORDERED: NON-FORMULARY MEDICATION (Fluticasone Furoate-Vilanterol [Breo Ellipta] 1 PUFFS) INH PRN (13:28)
[2019-03-03] MEDS ORDERED: GLUCOSE 10 TABS/TUBE PO PRN (13:28)
[2019-03-03] MEDS ORDERED: DEXTROSE 50% 50 ML SYRINGE IV PRN (13:28)
[2019-03-03] MEDS ORDERED: GLUCOSE 40% GEL 15 GM TUBE PO PRN (13:28)
[2019-03-03] MEDS ORDERED: GLUCAGON FOR INJ 1 MG VIAL SQ PRN (13:28)
[2019-03-03] MEDS ORDERED: CARBOHYDRATES FOR HYPOGLYCEMIA PO PRN (13:28)
[2019-03-03] MEDS ORDERED: ALBUTEROL HFA 8 GM INHALER INH PRN (13:28)
[2019-03-03] MEDS ORDERED: PHARMACIST DISCHARGE MED REC CONSULT PRN (13:28)
--- NOTE | 2019-03-03 15:33 | Magnetic Resonance Report ---
MR brain wo con HISTORY: 64 years-old Female stroke symptoms acute strokelike symptoms COMPARISON: Head CT of same day TECHNIQUE: Multiplanar multisequence MRI of the brain was obtained without the use of IV contrast. FINDINGS: Social Work Associate localizer images demonstrate no gross extracranial abnormality. There is no restricted diffusio n to suggest acute or subacute infarction. Midline structures including the corpus callosum, brainste m, optic chiasm, pituitary and pineal glands appear unremarkable on the sagittal T1 series. No cerebe llar tonsillar herniation. No acute intracranial hemorrhage, midline shift, abnormal extra axial shukri ection, hydrocephalus or intracranial mass. Mild degree of scattered T2/flair hyperintensities are no toribio about the white matter of the bilateral cerebral hemispheres, nonspecific however suggestive of p robable early chronic microvascular ischemic disease. Major flow voids at the level of the skull base appear patent. Mastoid air cells are clear. Mild polypoid mucosal thickening of the left maxillary a nd ethmoid sinuses. Mild mucosal thickening also noted within the right maxillary sinus. The orbits, skull and soft tissues are within normal limits. IMPRESSION: No acute intracranial abnormality, specifically there is no acute or subacute infarct. ACT 112: Negative or not required by law. The above report was generated using voice recognition software. It may contain grammatical, syntax o r spelling errors. Electronically signed by: Carlos Lloyd M.D. 03/03/2019 3:32 PM
[2019-03-03] MEDS: INSULIN ASPART 100 UNITS/ML 3 ML PEN SC SCH ×3 (15:34→21:41)
--- NOTE | 2019-03-03 16:20 | Neurology Consultation ---
Date of Consultation March 03, 2019 Assessment & Plan (1) Stroke-like symptoms: 1. MRI brain no acute findings 2. CTA head and neck- no acute findings 3. 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 tingling in head and then arms legs- have resolved but no clear source of symptoms 6. follow up with PCP for medication management 7. question ambien and SSR over dose or taking additional doses unintentionally Supervising Physician Co-Signing Physician Notes I have seen and discussed above patient with Dr Mikhail Craig, neurology I have interviewed and examined this woman in the presence of her sister and with Yesi Jones PA-C and agree with the impressions listed above. The history is very difficult to interpret. 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 that is easily exacerbated during times of anxiety and is clearly a major issue at this point but seems to be improving The symptoms he described this morning are of uncertain cause but were preceded by headache and then by an ill-defined sense of pressure/pain and paresthesias radiating into the occipital region and down into the extremities with increased difficulty with speech and more tremor and of about 3 hours duration Imaging studies have shown no evidence for vertebrobasilar ischemic events and the CT angiographic studies are normal Upon more history taking it is possible that she took double doses of some of her medications including Celexa and is possible that what transpired was an excessive serotonin syndrome which is now clearing This also could have been a migraine headache as she did talk about some visual obscurations and scotoma prior to the onset of her symptoms Whatever the case we see no evidence for a completed stroke, I would simply observe her, would have her sister or someone responsible take over her medications to ensure that the potential double dosing does not occur in the future and we will check back with her tomorrow to reassess his situation and see if we can get a little better feel on what happened and what the true history of the event might have been in the clarity of hindsight At present her exam shows only the head to intubation the tremulous stuttering speech and a little tremor of the outstretched hands without any other evidence for extraocular movement disorder, visual field cut, significant motor weakness, reflex changes, pathologic reflexes sensory loss etc. Mikhail Craig MD History of Present Illness Reason for Consultation: stroke like symptoms Requesting Physician: Mikhail Pink MD Attending Physician: Mikhail Pink MD History of Present Illness Charla is a 64 year old female with- PMH DM II, HTN, HLD, anxiety, asthma, GERD presented to ER with c/o visual disturbance and paresthesias today. At approx 8:00AM she was reading newspaper when started with blurry vision followed by feeling shaky and had trouble talking and stuttering. She also felt lightheaded and had posterior NAVARRETE. She then had paresthesias to head followed by paresthesias to bilateral arms and legs which would come in waves. She reports feeling bilateral leg "heaviness" and difficulty walking. She reports baseline tremor of arms and head. she states she may have taken an extra dose of some of her medications. She remembers walking over to her medications and couldn't remember if she had taken them earlier. denies CP, SOB, abdominal pain, one sided weakness, numbness tingling, vision changes, N, V, loss of bowel or bladder. Allergies Allergy/AdvReac Type Severity Reaction Status Date / Time aspirin Allergy Unknown UNKNOWN Verified 03/03/19 10:38 morphine Allergy Unknown Verified 03/03/19 10:38 shrimp Allergy Unknown HIVES Verified 03/03/19 10:38 amoxicillin AdvReac Unknown NAUSEA Verified 03/03/19 10:38 clavulanic acid AdvReac Unknown NAUSEA Verified 03/03/19 10:38 Opioid Analgesics Allergy Unknown UNKNOWN Uncoded 03/03/19 10:38 Unclassified Drugs Allergy Unknown CATS/DOGS/G Uncoded 03/03/19 10:38 RASS/TREES Home Medications Home Medications Medication Instructions Recorded Confirmed Type albuterol sulfate 2 puff INHALATION QID PRN 03/03/19 03/03/19 History atorvastatin 40 mg PO HS 03/03/19 03/03/19 History bupropion HCl 300 mg PO QAM 03/03/19 03/03/19 History duloxetine 60 mg PO QAM 03/03/19 03/03/19 History fluticasone furoate-vilanterol 1 inh INHALATION DAILY PRN 03/03/19 03/03/19 History [Breo Ellipta] lisinopril-hydrochlorothiazide 1 tab PO QAM 03/03/19 03/03/19 History metformin 1,000 mg PO QAM 03/03/19 03/03/19 History omeprazole 20 mg PO BID 03/03/19 03/03/19 History zolpidem 5 mg PO HS 03/03/19 03/03/19 History Patient History Medical History (Updated 03/03/19 @ 12:29 by Marlene Merritt PA-C) Adjustment reaction (Inactive) Anxiety (Chronic) Asthma (Chronic) Bronchitis Depression (Chronic) Diabetes mellitus, type II Dyslipidemia (Chronic) GERD (gastroesophageal reflux disease) (Chronic) History of right bundle branch block (RBBB) (Chronic) "1st noted in 2001" Hypertension (Chronic) RADHA (iron deficiency anemia) (Chronic) SOB (shortness of breath) (Inactive) Surgical History H/O colonoscopy (Inactive) H/O cystoscopy (Inactive) History of esophagogastroduodenoscopy (EGD) (Inactive) History of mandibular surgery (Inactive) S/P appendectomy (Inactive) S/P blepharoplasty (Inactive) S/P cholecystectomy (Inactive) S/P foot surgery (Inactive) S/P partial colectomy (Inactive) Status post hysteroscopic polypectomy (Inactive) Family History Other Asthma Breast cancer Diabetes Hypertension Social History Preferred Language: [place] Communication Ability: Effective Hog Slaughterer Required: No Beliefs That Will Affect Care: None marital status: Single Current Living Situation: Family Current Living Situation Comment: lives with nephew current occupational status: unemployed and disabled Other Information That Helps Us Care for You: No Feels Safe at Home: Yes Safety Concerns: Feels Safe At This Time Smoking Status: Never smoker Do You Dip or Chew Tobacco: No ; Second Hand Exposure: No ; Tobacco Cessation Education Requested by Patient: No Hx Alcohol Use: No Hx Substance Use: No Physical Exam Physical Exam: Physical Exam: Constitutional: appearance over nourished, healthy, head tremor Ears, Nose, Mouth and Throat: mucous membranes moist, no injection and skin normal, eyes normal Cardiovascular: normal S-1 and S-2 and regular rate and rhythm Respiratory: clear to auscultation (CTA) and no rales, ronchi or wheeze Musculoskeletal: no peripheral edema Skin: no stigmata of neurocutaneous disease noted and normal and intact Eyes: extraocular muscles intact (EOMI) and pupils equal, round and reactive to light (PERRL) NEUROLOGIC EXAMINATION: Mental status: Alert and interactive Oriented to full date and location Oriented to person Speech shuddering speech, voice tremor Cranial Nerves smile eye brow raise symmetric Sensory: to light cool touch Coordination: finger to nose no bi pass, tremor with intention, heal to torres intact Gait/Stance: Posture normal. Motor: Negative for pronator drift of out stretched arms with eyes closed. Strength: hand director of community education biceps triceps 5/5 hip flex patellar flex ext Results & Data Vital Signs (Past 12 Hours) Vital Signs Temp Pulse Pulse Resp BP BP Pulse Ox 03/03/19 14:19 106 H 03/03/19 12:02 106 H 21 133/98 95 03/03/19 11:39 107 H 22 156/90 H 96 03/03/19 10:40 100 H 22 149/99 H 96 03/03/19 10:32 102 H 25 H 95 03/03/19 10:30 103 H 22 140/104 H 95 03/03/19 10:21 103 H 22 95 03/03/19 10:20 102 H 19 160/104 H 96 03/03/19 10:11 104 H 104 H 25 H 154/90 H 154/90 H 96 03/03/19 10:10 106 H 28 H 96 03/03/19 10:01 104 H 105 H 24 152/98 H 152/98 H 95 03/03/19 10:00 104 H 18 96 03/03/19 09:51 106 H 23 95 03/03/19 09:40 105 H 23 96 03/03/19 09:38 105 H 25 H 152/122 H 96 03/03/19 09:36 37.0 C 105 H 20 152/122 H 96 Laboratory Results Abnormal lab results 03/03/19 03/03/19 03/03/19 Range/Units 09:40 09:40 09:40 RBC 3.95 L (4.2-5.4) M/uL Hgb 11.3 L (12.0-16.0) g/dL Hct 35.2 L (37-47) % [place] # (Auto) 1.00 H (0.11-0.59) K/uL Sodium 133 L (136-145) mmol/L Glucose 148 H (70-99) mg/dl POC Glucose 142 H (70-99) Calcium 8.3 L (8.5-10.1) mg/dl Albumin 3.3 L (3.4-5.0) gm/dl 03/03/19 03/03/19 Range/Units 13:47 15:42 RBC (4.2-5.4) M/uL Hgb (12.0-16.0) g/dL Hct (37-47) % [place] # (Auto) (0.11-0.59) K/uL Sodium (136-145) mmol/L Glucose (70-99) mg/dl POC Glucose 136 H 125 H (70-99) Calcium (8.5-10.1) mg/dl Albumin (3.4-5.0) gm/dl Diagnostic Findings CXR-Negative chest. CT head-No significant change compared to the prior study. No acute intracranial abnormality. CTA head-No significant stenosis, occlusion, or aneurysm within the [place]. CTA neck-No significant stenosis, occlusion, or dissection identified within the carotid or vertebral arteries. MRI brain-No acute intracranial abnormality, specifically there is no acute or subacute infarct.
[2019-03-03] MEDS: ENOXAPARIN INJ 40 MG/0.4 ML SYR SQ SCH (16:42)
[2019-03-03] MEDS: ZOLPIDEM TARTRATE 5 MG TAB PO SCH (21:27)
[2019-03-03] MEDS: ATORVASTATIN 40 MG TAB PO SCH (21:27)
[2019-03-03] MEDS: PANTOprazole 40 MG TAB PO SCH (21:28)
[2019-03-04] MEDS: DULOXETINE HCL 60 MG CAP PO SCH (08:12)
[2019-03-04] MEDS: PANTOprazole 40 MG TAB PO SCH ×2 (08:12→20:44)
[2019-03-04] MEDS: LISINOPRIL/HCTZ 10/12.5MG TAB PO SCH (08:12)
[2019-03-04] MEDS: BuPROPion XL 300 MG TABCR PO SCH (08:13)
[2019-03-04] MEDS: INSULIN ASPART 100 UNITS/ML 3 ML PEN SC SCH ×4 (08:13→20:50)
[2019-03-04 08:19] LABS: Hematocrit (blood only) 39.7 % (37-47); Hemoglobin 12.7 g/dL (12.0-16.0); Mean Corpuscular Volume 90.6 fL (80-100); Platelet Count 370 K/uL (130-400); RDW Coefficient of Variation 12.8 % (11.5-14.5); RDW Standard Deviation 42.5 fL (36.4-46.3); Red Blood Count 4.38 M/uL (4.2-5.4); White Blood Count 10.76 K/uL (4.8-10.8)
[2019-03-04 08:45] LABS: Estimated Average Glucose 157 mg/dl; Hemoglobin A1C 7.1 % (4.5-5.6)
[2019-03-04 09:39] LABS: BUN Creatinine Ratio 12.6 (10-20); Calcium 9.5 mg/dl (8.5-10.1); Creatinine Clr Calc Pharmacy 51.2 ml/min; Est GFR (African American) 68.6; Est GFR (Non-African American) 59.2
--- NOTE | 2019-03-04 13:01 | Hospitalist Progress Note ---
Date of Service March 04, 2019 Assessment & Plan (1) Stroke-like symptoms: Pt is 64 y/o F with PMH DM II, HTN, dyslipidemia, anxiety, asthma, GERD presented to ER with c/o blurry vision and bilateral upper and lower paresthesias today starting at 8:00AM. Also reports stuttering and bilateral leg heaviness In ER initial P: 105 and BP: 152/122 down to 154/90 without any medications given. Corrected Na: 134 for glucose of 148. No other significant electrolyte abnormalities. Negative troponin. CTA HEAD: No significant stenosis, occlusion, or aneurysm within the [place]. CTA NECK: No significant stenosis, occlusion, or dissection identified within the carotid or vertebral arteries. -Had tele stroke eval in ER with Dr Mesa and no TPA was recommended -Tele to monitor for arrhythmias -Lipid panel-unremarkable, A1c -7.1 -MRI brain-negative for any lesion -Echo: No intra-atrial shunt, interatrial septum is intact, LV systolic function is normal with EF of 60 to 65%, right ventricular systolic function is normal, left atrial and right atrial sizes are normal and no significant valvular pathology -PT/OT consult -Continue atorvastatin -Neurology consult-appreciate input and recommendation -Likely be discharged this afternoon (2) Diabetes mellitus, type II: A1c: 6.7 on 07/04/18 -Hold metformin -Novolog sliding scale per protocol (3) Hypertension: -Continue lisinopril/HCTZ (4) Dyslipidemia: -Continue atorvastatin (5) Asthma: -Continue albuterol prn No acute symptoms (6) Anxiety: -Continue duloxetine, bupropion (7) GERD (gastroesophageal reflux disease): -Continue PPI DVT Prophylaxis -Lovenox SQ Likely to be discharged this afternoon Subjective 03/04 The patient was seen and examined in medical floor She complains to have some tremor but denies any other neurological symptoms She has been eating normally and has been ambulating well We will get physical therapy evaluation Discharge this afternoon Review of Systems Review of Systems: All systems reviewed and are unremarkable except as noted below Constitutional: + malaise Neurologic: + generalized weakness and + tremor(s) (Has minimal tremor in the extremities); no paralysis, no numbness, no abnormal speech, no confusion and no memory loss Physical Exam Physical Exam: Lying in bed comfortably Constitutional: well developed, well nourished and + ill appearing; no acute distress Eyes: PERRL, conjunctivae normal, anicteric sclerae ENMT: external ear and nose normal, oropharynx normal Neck: trachea midline, no thyromegaly Respiratory: normal respiratory effort; no respiratory distress Auscultation: lungs clear to auscultation bilaterally Cardiovascular: Rate/Rhythm: regular rate and regular rhythm Heart Sounds: no murmur Gastrointestinal (Abdomen): Inspection/Auscultation: abdomen normal to inspection and normal bowel sounds Percussion/Palpation: abdomen soft Musculoskeletal: No acute arthritis in any joints Neurologic: moves all extremities; no focal motor deficits Speech / Cognition: normal speech Motor/Sensory: + tremor (Minimal tremor in the upper extremities) Generally weak Lymphatic: no cervical or axillary lymphadenopathy Results & Data Vital Signs (Past 12 Hours) Vital Signs Temp Pulse Pulse Resp BP Pulse Ox 03/04/19 11:28 36.7 C 88 20 126/87 95 03/04/19 07:56 36.8 C 77 20 107/67 93 03/04/19 07:16 81 03/04/19 03:59 36.5 C 88 20 131/84 92 Laboratory Results Short CBC 03/04/19 Range/Units 07:54 WBC 10.76 (4.8-10.8) K/uL Hgb 12.7 (12.0-16.0) g/dL Hct 39.7 (37-47) % Plt Count 370 (130-400) K/uL [facility] 03/04/19 07:54 Sodium 139 Potassium 4.0 Chloride 104 Carbon Dioxide 28 BUN 13 Creatinine 1.01 Glucose 133 H Calcium 9.5 Medications Administered Current Inpatient Medications Acetaminophen (Tylenol) 650 mg PO Q4H PRN PRN Reason: Pain or Fever Stop: 04/02/19 13:27 Albuterol (Ventolin Hfa) 2 puffs INH QID PRN PRN Reason: Shortness Of Breath Or Wheezing Stop: 04/02/19 13:27 Atorvastatin Calcium (Lipitor) 40 mg PO HS [facility] Stop: 04/02/19 20:59 Last Admin: 03/03/19 21:27 Dose: 40 mg Documented by: Bupropion HCl (Wellbutrin-Xl) 300 mg PO QAM [facility] Stop: 04/03/19 08:59 Last Admin: 03/04/19 08:13 Dose: 300 mg Documented by: Dextrose (Dextrose 50%) 25 - 50 ml IV UD PRN; Protocol PRN Reason: Hypoglycemia Protocol Stop: 04/02/19 13:27 Duloxetine HCl (Cymbalta) 60 mg PO QAM [facility] Stop: 04/03/19 08:59 Last Admin: 03/04/19 08:12 Dose: 60 mg Documented by: Enoxaparin Sodium (Lovenox) 40 mg SQ Q24H [facility] Stop: 04/02/19 13:59 Last Admin: 03/03/19 16:42 Dose: 40 mg Documented by: Glucagon (Glucagen) 1 mg SQ UD PRN; Protocol PRN Reason: Hypoglycemia Protocol Stop: 04/02/19 13:27 Glucose (Dex4 Glucose) 4 - 8 tabs PO UD PRN; Protocol PRN Reason: Hypoglycemia Protocol Stop: 04/02/19 13:27 Glucose (Glucose 40%) 15 - 30 gm PO UD PRN; Protocol PRN Reason: Hypoglycemia Protocol Stop: 04/02/19 13:27 Lisinopril/HCTZ (Prinzide 10/12.5mg) [facility] Stop: 04/03/19 08:59 Last Admin: 03/04/19 08:12 Dose: 1 tab Documented by: Insulin Aspart (Novolog Flexpen) 0 units SC ACHS [facility] Stop: 04/02/19 13:27 Last Admin: 03/04/19 12:14 Dose: 3 units Documented by: Miscellaneous (Carbohydrates For Hypoglycemia) 15 - 30 gm PO UD PRN PRN Reason: Hypoglycemia Protocol Stop: 04/02/19 13:27 Pantoprazole Sodium (Protonix) 40 mg PO BID [facility]; Protocol Stop: 04/02/19 20:59 Last Admin: 03/04/19 08:12 Dose: 40 mg Documented by: Zolpidem Tartrate (Ambien) 5 mg PO HS [facility] Stop: 04/02/19 20:59 Last Admin: 03/03/19 21:27 Dose: 5 mg Documented by:
[2019-03-04] MEDS: ENOXAPARIN INJ 40 MG/0.4 ML SYR SQ SCH (14:18)
--- NOTE | 2019-03-04 14:43 | Neurology Progress Note ---
Date of Service March 04, 2019 Assessment & Plan (1) Stroke-like symptoms: 1. MRI brain no acute findings 2. CTA head and neck- no acute findings 3. 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 tingling in head and then arms legs- have resolved but no clear source of symptoms 6. follow up with PCP for medication management 7. question ambien and SSR over dose or taking additional doses unintentionally 8. TTE- no ASD Supervising Physician Co-Signing Physician Notes I have seen and discussed above patient with Dr Mikhail Craig, neurology I saw Jennifer today and note that she is feeling back to her baseline, still has a titubation of the head which is been a longstanding problem and is part of what I think is a familial tremor but she has no more the pressure sensations the confusion etc. and she admits now that she may have been taking her Ambien more regularly, could have become confused and could have it with advertently taken an extra dose of Cymbalta which would be one explanation for the sudden increase in her tremulousness the pressure sensations the anxiety and confusional state that she presented with I certainly cannot exclude a confusional migraine but neither case she is recovered and back to her baseline and I would not change her management medically at this point For now I would suggest that she could be discharged back to the care of Dr. Marisela Alonso who continues to follow her in the neurocognitive clinic and [place]. I believe Dr. pineda may be asking psychiatry to look at her regarding her medications and whether other recommendations might be forthcoming but for now neurology does not have anything else to offer diagnostically or therapeutically here in [place] Mikhail Craig MD Nate Dunham is a 64 year old female with- PMH DM II, HTN, HLD, anxiety, asthma, GERD presented to ER with c/o visual disturbance and paresthesias today. At approx 8:00AM she was reading newspaper when started with blurry vision followed by feeling shaky and had trouble talking and stuttering. She also felt lightheaded and had posterior NAVARRETE. She then had paresthesias to head followed by paresthesias to bilateral arms and legs which would come in waves. She reports feeling bilateral leg "heaviness" and difficulty walking. She reports baseline tremor of arms and head. she states she may have taken an extra dose of some of her medications. She remembers walking over to her medications and couldn't remember if she had taken them earlier. She states she is feeling better today. She has been up walking and her tremor is back to baseline. no further paresthesias in her head or extremities. denies CP, SOB, abdominal pain, one sided weakness, numbness tingling, vision changes, N, V, loss of bowel or bladder. Physical Exam Physical Exam: Gen: alert NAD lungs CTA CV RRR finger to nose no bi pass, reaching tremor R>L head tremor increases with talking strength hand, biceps triceps 5/5 bilaterally hip flex 5/5 bilaterally no pronator drift Results & Data Vital Signs (Past 12 Hours) Vital Signs Temp Pulse Pulse Resp BP Pulse Ox 03/04/19 11:28 36.7 C 88 20 126/87 95 03/04/19 07:56 36.8 C 77 20 107/67 93 03/04/19 07:16 81 03/04/19 03:59 36.5 C 88 20 131/84 92 Laboratory Results Abnormal lab results 03/03/19 03/03/19 03/04/19 Range/Units 15:42 20:49 07:50 Glucose (70-99) mg/dl POC Glucose 125 H 113 H 135 H (70-99) Hemoglobin A1c (4.5-5.6) % Urine Blood (Negative) U Epithel Cells (Auto) (0-5) /lpf 03/04/19 03/04/19 03/04/19 Range/Units 07:54 07:54 11:34 Glucose 133 H (70-99) mg/dl POC Glucose 127 H (70-99) Hemoglobin A1c 7.1 H (4.5-5.6) % Urine Blood (Negative) U Epithel Cells (Auto) (0-5) /lpf 03/04/19 Range/Units 13:30 Glucose (70-99) mg/dl POC Glucose (70-99) Hemoglobin A1c (4.5-5.6) % Urine Blood Trace H (Negative) U Epithel Cells (Auto) 5-10 H (0-5) /lpf Diagnostic Findings TTE- 60-65% no ASD
[2019-03-04 14:44] LABS: Appearance Urine Clear (Clear); Bacteria Urine Automated Negative (Negative); Bilirubin Urine Negative (Negative); Blood Urine Trace (Negative); Color Urine Yellow; Glucose Urine UA Negative (Negative); Ketones Urine Negative (Negative); Leukocyte Esterase Urine Negative (Negative); Nitrite Urine Negative (Negative); Protein Urine Negative (Negative); RBC Urine Automated 0-4 /hpf (0-4); Specific Gravity Urine 1.012 (1.000-1.030); Urobilinogen Urine Negative (Negative)
[2019-03-04] MEDS: ATORVASTATIN 40 MG TAB PO SCH (20:45)
[2019-03-04] MEDS: ZOLPIDEM TARTRATE 5 MG TAB PO SCH (20:46)
[2019-03-05] MEDS: BuPROPion XL 300 MG TABCR PO SCH (07:43)
[2019-03-05] MEDS: DULOXETINE HCL 60 MG CAP PO SCH (07:44)
[2019-03-05] MEDS: LISINOPRIL/HCTZ 10/12.5MG TAB PO SCH (07:44)
[2019-03-05] MEDS: PANTOprazole 40 MG TAB PO SCH (07:44)
[2019-03-05] MEDS: INSULIN ASPART 100 UNITS/ML 3 ML PEN SC SCH ×2 (08:25→12:13)
--- NOTE | 2019-03-05 11:49 | Psychiatric Consultation ---
Date of Consultation March 05, 2019 Impression / Recommendations Impression 64 yr old female admitted for with h/o depression and anxiety, Wellbutrin xl 300mg am for years, Cymbalta 60mg a day, taking Cymbalta for about a year per pt. and tending to alternate melatonin 10mg Hs plus 5mg 1 prn insomnia and Ambien 5mg hs pt reports stressors in Dec-Jan of deaths of 2 close friends that impacted her mood and stress level some but that this has improved lately. Pt feels Cymbalta has been quite effective at lowering anxiety, but might be having some breakthrough symptoms. Pt appears to wait till feels the effective of the sleep aid before going to bed.. Pt took Ambien only instead of sometimes melatonin recently over running out of melatonin. Pt thinks the Ambien brings out some mental confusion and fatigue. Sees her neurologist in a week. sometimes takes her morning Meds late morning if busy in the morning. 03/05 - stop Ambien resume melatonin at 10mg hs plus 5mg additional dose prn insomnia continue Cymbalta 60mg am and Wellbutrin xl 300mg am encouraged aiming to take Cymbalta and Wellbutrin xL shortly after awakening to minimize risk of insomnia from these medications to be assessed for anxiety, insomnia, mental confusion, fatigue, and forgetfulness in upcoming appt with neurologist in a week with consideration of further medication adjustments if appropriate at that time. consideration of lowering Wellbutrin xL and/or raising Cymbalta to 90mg a day are options to consider. Sonata or low dose trazodone are alternative options that can be ocnsidered if melatonin not effective for insomnia concerns. Further sleep hygiene practice would be encouraged as well. consider psychiatric outpt med management appts with some referrals provided. Psych History Chief Complaint "Ambien seems to make me foggy and forgetful". History of Present Illness Pt is 64 y/o F with PMH DM II, HTN, dyslipidemia, anxiety, asthma, GERD who presented to ER with c/o visual disturbance and paresthesias starting day of admit starting with blurry vision followed by feeling shaky and had trouble talking and stuttering. Also reports feeling lightheaded and had posterior NAVARRETE. Reports paresthesias to head followed by paresthesias to bilateral arms and legs. She reports feeling bilateral leg "heaviness" and difficulty walking. Denies fall. Pt denies increased anxiety. She reports baseline tremor of arms. Denies fever/chills, diaphoresis, N/V/D/C, syncope, vision loss, neck pain, CP, SOB, orthopnea, palpitations, cough, sore throat, choking, otalgia, rhinorrhea, abdominal pain, extremity edema, rashes, urinary symptoms. paresthesia was intermittent, strength and Headache and blurry vision resolved in ER. was anxious in the ER. Pt had tele stroke evaluation in ER and no TPA was recommended. Pt has longstanding history of depressive and anxiety symptoms. She has been taking Wellbutrin xl 300mg 1 am for number of years. Cymbalta was added by Dr. Alonso about a year ago and she has been at 60mg 1 day for some time now. She has been taking either melatonin 10-15mg hs or Ambien at 5-10mg hs for insomnia concerns. She started using melatonin about half the nights following recommendation by Dr. Alonso to replace the Ambien. Pt was wary to fully stop the Ambien since was not trusting melatonin to be fully effective always. However, she indicated that with taking 10mg of melatonin if had trouble falling asleep then an extra 5mg dose was consistently effective. She denied ever taking both agents in the same night. She had run out of melatonin recently and resumed Ambien dosing in general recently. She thinks her fogginess and forgetfulness has been better when was using melatonin. She endorsed that her anxiety had notably improved since Cymbalta was added. She shared about the of two of her close friends in late December and in January and how that added to her stress and worsened her mood this fall. However she feels that her mood has improved in the past number of weeks. She shared that she was not sure if she had taken her Meds on day of admission and ended up possibly taking her morning Meds a second time and she wonders if that lead to her symptoms that had her admitted. She denied SI. She endorsed normal appetite and denied excessive guilt. She denied recent anxiety symptoms in past couple weeks to this loan underwriter but appeared to endorsed anxiety that was improved but not resolved to the nurse liaison yesterday. She obtains Cymbalta by her neurologist and she obtains her Ambien nand Wellbutrin xl from her PCP. Her PCP (Dr. Ashton) is retiring and she is aiming to see Kam Hutton as her PCP . She has an upcoming appt with Dr. Alonso Mar 11 2019. She indicated she was referred to her over her fogginess and forgetfulness and trouble coming up with words at times and her understanding was that Dr. Alonso attributed the Ambien as a likely precipitating factor for these concerns. She was told to take melatonin at 10mg hs instead of Ambien. other night had trouble eating ice cream that nephew offered her. Allergies Allergy/AdvReac Type Severity Reaction Status Date / Time aspirin Allergy Unknown UNKNOWN Verified 03/03/19 10:38 morphine Allergy Unknown Verified 03/03/19 10:38 shrimp Allergy Unknown HIVES Verified 03/03/19 10:38 amoxicillin AdvReac Unknown NAUSEA Verified 03/03/19 10:38 clavulanic acid AdvReac Unknown NAUSEA Verified 03/03/19 10:38 Opioid Analgesics Allergy Unknown UNKNOWN Uncoded 03/03/19 10:38 Unclassified Drugs Allergy Unknown CATS/DOGS/G Uncoded 03/03/19 10:38 RASS/TREES Home Medications Home Medications Medication Instructions Recorded Confirmed Type albuterol sulfate 2 puff INHALATION QID PRN 03/03/19 03/03/19 History atorvastatin 40 mg PO HS 03/03/19 03/03/19 History bupropion HCl 300 mg PO QAM 03/03/19 03/03/19 History duloxetine 60 mg PO QAM 03/03/19 03/03/19 History fluticasone furoate-vilanterol 1 inh INHALATION DAILY PRN 03/03/19 03/03/19 History [Breo Ellipta] lisinopril-hydrochlorothiazide 1 tab PO QAM 03/03/19 03/03/19 History metformin 1,000 mg PO QAM 03/03/19 03/03/19 History omeprazole 20 mg PO BID 03/03/19 03/03/19 History zolpidem 5 mg PO HS 03/03/19 03/03/19 History Personal History Beliefs That Will Affect Care: None Patient History Medical History Adjustment reaction (Inactive) Anxiety (Chronic) Asthma (Chronic) Bronchitis Depression (Chronic) Diabetes mellitus, type II Dyslipidemia (Chronic) GERD (gastroesophageal reflux disease) (Chronic) History of right bundle branch block (RBBB) (Chronic) "1st noted in 2001" Hypertension (Chronic) RADHA (iron deficiency anemia) (Chronic) SOB (shortness of breath) (Inactive) Surgical History H/O colonoscopy (Inactive) H/O cystoscopy (Inactive) History of esophagogastroduodenoscopy (EGD) (Inactive) History of mandibular surgery (Inactive) S/P appendectomy (Inactive) S/P blepharoplasty (Inactive) S/P cholecystectomy (Inactive) S/P foot surgery (Inactive) S/P partial colectomy (Inactive) Status post hysteroscopic polypectomy (Inactive) Family History Other Asthma Breast cancer Diabetes Hypertension Social History Preferred Language: Greek Communication Ability: Effective Wholesale Representative Required: No Beliefs That Will Affect Care: None marital status: Single Current Living Situation: Family Current Living Situation Comment: lives with nephew current occupational status: unemployed and disabled Other Information That Helps Us Care for You: No Feels Safe at Home: Yes Safety Concerns: Feels Safe At This Time Smoking Status: Never smoker Do You Dip or Chew Tobacco: No ; Second Hand Exposure: No ; Tobacco Cessation Education Requested by Patient: No Hx Alcohol Use: No Hx Substance Use: No Physical Exam Psychiatric: Orientation: alert, oriented x 3 and cooperative Apperance: appropriately dressed and appropriately groomed Eye Contact: good eye contact Motor Behavior: no psychomotor agitation and no psychomotor retardation Speech: normal rate/rhythm/volume of speech Affect: + anxious affect Mood: no depressed mood and no anxious mood Thought Content: reality based without delusions some anxiousness about her medication causing side effects Suicidal Thoughts: denies suicidal thoughts Homicidal Thoughts: denies homicidal thoughts Hallucinations: no auditory hallucinations some mental "fogginess" with pt showing some mild but notable cognitive impairments at a gross level Estimated Intelligence: consistent with education level Insight: + fair insight Judgement: + fair judgement Vital Signs (Past 24 Hours): Last Vital Signs Temp 36.7 C 03/05/19 07:22 Pulse 87 03/05/19 07:22 Resp 18 03/05/19 07:22 BP 101/64 03/05/19 07:22 Pulse Ox 94 03/05/19 07:22 Results & Data Medications Administered Atorvastatin Calcium (Lipitor) 40 mg PO HS [facility] Stop: 04/02/19 20:59 Last Admin: 03/04/19 20:45 Dose: 40 mg Documented by: [id number] Admin: 03/03/19 21:27 Dose: 40 mg Documented by: [id number] Bupropion HCl (Wellbutrin-Xl) 300 mg PO [facility] Stop: 04/03/19 08:59 Last Admin: 03/05/19 07:43 Dose: 300 mg Documented by: [id number] Admin: 03/04/19 08:13 Dose: 300 mg Documented by: [id number] Duloxetine HCl (Cymbalta) 60 mg PO [facility] Stop: 04/03/19 08:59 Last Admin: 03/05/19 07:44 Dose: 60 mg Documented by: [id number] Admin: 03/04/19 08:12 Dose: 60 mg Documented by: [id number] Enoxaparin Sodium (Lovenox) 40 mg SQ Q24H [facility] Stop: 04/02/19 13:59 Last Admin: 03/04/19 14:18 Dose: 40 mg Documented by: [id number] Admin: 03/03/19 16:42 Dose: 40 mg Documented by: [id number] Lisinopril/HCTZ (Prinzide 10/12.5mg) 1 tab PO [facility] Stop: 04/03/19 08:59 Last Admin: 03/05/19 07:44 Dose: 1 tab Documented by: [id number] Admin: 03/04/19 08:12 Dose: 1 tab Documented by: [id number] Insulin Aspart (Novolog Flexpen) 0 units SC [facility] Stop: 04/02/19 13:27 Last Admin: 03/05/19 08:25 Dose: 4 units Documented by: [id number] Cosigned by: [id number] Admin: 03/04/19 20:50 Dose: Not Given Documented by: [id number] Cosigned by: [id number] Admin: 03/04/19 17:34 Dose: 4 units Documented by: [id number] Cosigned by: [id number] Admin: 03/04/19 12:14 Dose: 3 units Documented by: [id number] Cosigned by: [id number] Admin: 03/04/19 08:13 Dose: 2 units Documented by: [id number] Cosigned by: [id number] Admin: 03/03/19 21:41 Dose: Not Given Documented by: [id number] Cosigned by: [id number] Admin: 03/03/19 17:23 Dose: Not Given Documented by: [id number] Cosigned by: [id number] Admin: 03/03/19 15:34 Dose: Not Given Documented by: [id number] Cosigned by: [id number] Pantoprazole Sodium (Protonix) 40 mg PO BID [facility]; Protocol Stop: 04/02/19 20:59 Last Admin: 03/05/19 07:44 Dose: 40 mg Documented by: [id number] Admin: 03/04/19 20:44 Dose: 40 mg Documented by: [id number] Admin: 03/04/19 08:12 Dose: 40 mg Documented by: [id number] Admin: 03/03/19 21:28 Dose: 40 mg Documented by: [id number] Zolpidem Tartrate (Ambien) 5 mg PO HS [facility] Stop: 04/02/19 20:59 Last Admin: 03/04/19 20:46 Dose: 5 mg Documented by: [id number] Admin: 03/03/19 21:27 Dose: 5 mg Documented by: [id number] Coding Level of Care Code 40935 [facility] Intl Hosp Care Lvl 3
[2019-03-05] MEDS ORDERED: NON-FORMULARY MEDICATION (Melatonin 5 MG) PO PRN (11:50)
[2019-03-05] MEDS: ENOXAPARIN INJ 40 MG/0.4 ML SYR SQ SCH (14:21)
--- NOTE | 2019-03-05 14:24 | Hospitalist Progress Note ---
Date of Service March 05, 2019 Assessment & Plan (1) Stroke-like symptoms: per Dr. Guerin's notes: Pt is 64 y/o F with PMH DM II, HTN, dyslipidemia, anxiety, asthma, GERD presented to ER with c/o blurry vision and bilateral upper and lower paresthesias today starting at 8:00AM. Also reports stuttering and bilateral leg heaviness In ER initial P: 105 and BP: 152/122 down to 154/90 without any medications given. Corrected Na: 134 for glucose of 148. No other significant electrolyte abnormalities. Negative troponin. CTA HEAD: No significant stenosis, occlusion, or aneurysm within the upper [place] of [place]. CTA NECK: No significant stenosis, occlusion, or dissection identified within the carotid or vertebral arteries. -Had tele stroke eval in ER with Dr Mesa and no TPA was recommended -MRI brain-negative for any lesion -Echo: No intra-atrial shunt, interatrial septum is intact, LV systolic function is normal with EF of 60 to 65%, right ventricular systolic function is normal, left atrial and right atrial sizes are normal and no significant valvular pathology -Lipid panel-unremarkable, A1c -7.1 - Neurologist consulted- Dr. Craig: symptoms felt to be the result of Ambien and possibly taking additional doses of Cymbalta no further intervention, medication changes Psychiatrist consulted- Dr. Gregg: recommend to stop Ambien and start Melatonin discussed with patient regarding above medication changes, emphasized importance of being careful with organizing her medications, nephew to help her, and home health services also to be arranged for her ff up with PCP and Neurologist in 1 week (2) Diabetes mellitus, type II: A1c: 6.7 on 07/04/18 -resume metformin (3) Hypertension: -Continue lisinopril/HCTZ (4) Dyslipidemia: -Continue atorvastatin (5) Asthma: -Continue albuterol prn No acute symptoms (6) Anxiety: -Continue duloxetine, bupropion (7) GERD (gastroesophageal reflux disease): -Continue PPI DVT Prophylaxis -Lovenox SQ d/c home with home health services ff up with PCP and Neurologist in 1 week Subjective ff up for stroke like symptoms seen resting in chair, comfortable reports all of her symptoms have resolved denies headache, dizziness, visual changes, no focal neurologic symptoms ambulates with no problems states she is ready and would like to be discharged today Review of Systems Review of Systems: All systems reviewed & are unremarkable except as noted in HPI & below Physical Exam Physical Exam: General- oriented x 3, not in distress, speaks in sentences with no effort or accessory muscle use Eyes- anicteric Neck- no JVD Lungs- clear breath sounds bilaterally, no rales/wheezes Heart- normal rate, regular rhythm; no murmurs Abdomen- normal bowel sounds, nondistended, soft, nontender Extremities- no pretibial edema, no calf tenderness Neuro- alert, oriented x 3; no gross focal neurologic deficits Skin- warm & dry Results & Data Vital Signs (Past 12 Hours) Vital Signs Temp Pulse Resp BP Pulse Ox 03/05/19 11:53 36.5 C 90 18 118/79 94 03/05/19 07:22 36.7 C 87 18 101/64 94 03/05/19 03:39 36.7 C 90 18 101/66 92 Laboratory Results Laboratory Results - last 24 hr 03/04/19 03/04/19 03/04/19 13:30 16:21 19:55 POC Glucose 95 127 H Urine Color Yellow Urine Appearance Clear Urine pH 5.0 Ur Specific [place] 1.012 Urine Protein Negative Urine Glucose (UA) Negative Urine Ketones Negative Urine Blood Trace H Urine Nitrite Negative Urine Bilirubin Negative Urine Urobilinogen Negative Ur Leukocyte Esterase Negative Urine WBC (Auto) 1-5 Urine RBC (Auto) 0-4 U Hyaline Cast (Auto) 1-5 U Epithel Cells (Auto) 5-10 H Urine Bacteria (Auto) Negative 03/05/19 03/05/19 07:51 11:18 POC Glucose 138 H 146 H Urine Color Urine Appearance Urine pH Ur Specific [place] Urine Protein Urine Glucose (UA) Urine Ketones Urine Blood Urine Nitrite Urine Bilirubin Urine Urobilinogen Ur Leukocyte Esterase Urine WBC (Auto) Urine RBC (Auto) U Hyaline Cast (Auto) U Epithel Cells (Auto) Urine Bacteria (Auto)
--- NOTE | 2019-03-05 14:29 | Discharge Summary ---
Date of Service March 05, 2019 Admission HPI Per Admitting Provider Pt is 64 y/o F with PMH DM II, HTN, dyslipidemia, anxiety, asthma, GERD who presented to ER with c/o visual disturbance and paresthesias starting day of admit starting with blurry vision followed by feeling shaky and had trouble talking and stuttering. Also reports feeling lightheaded and had posterior NAVARRETE. Reports paresthesias to head followed by paresthesias to bilateral arms and legs. She reports feeling bilateral leg "heaviness" and difficulty walking. Denies fall. Pt denies increased anxiety. She reports baseline tremor of arms. Denies fever/chills, diaphoresis, N/V/D/C, syncope, vision loss, neck pain, CP, SOB, orthopnea, palpitations, cough, sore throat, choking, otalgia, rhinorrhea, abdominal pain, extremity edema, rashes, urinary symptoms. paresthesia was intermittent, strength and Headache and blurry vision resolved in ER. was anxious in the ER. Pt had tele stroke evaluation in ER and no TPA was recommended. Pt has longstanding history of depressive and anxiety symptoms. She has been taking Wellbutrin xl 300mg 1 am for number of years. Cymbalta was added by Dr. Alonso about a year ago and she has been at 60mg 1 day for some time now. She has been taking either melatonin 10-15mg hs or Ambien at 5-10mg hs for insomnia concerns. She started using melatonin about half the nights following recommendation by Dr. Alonso to replace the Ambien. Pt was wary to fully stop the Ambien since was not trusting melatonin to be fully effective always. However, she indicated that with taking 10mg of melatonin if had trouble falling asleep then an extra 5mg dose was consistently effective. She denied ever taking both agents in the same night. She had run out of melatonin recently and resumed Ambien dosing in general recently. She thinks her fogginess and forgetfulness has been better when was using melatonin. She endorsed that her anxiety had notably improved since Cymbalta was added. She shared about the of two of her close friends in late December and in January and how that added to her stress and worsened her mood this fall. However she feels that her mood has improved in the past number of weeks. She shared that she was not sure if she had taken her Meds on day of admission and ended up possibly taking her morning Meds a second time and she wonders if that lead to her symptoms that had her admitted. She denied SI. She endorsed normal appetite and denied excessive guilt. She denied recent anxiety symptoms in past couple weeks to this food writer but appeared to endorsed anxiety that was improved but not resolved to the nurse liaison yesterday. She obtains Cymbalta by her neurologist and she obtains her Ambien nand Wellbutrin xl from her PCP. Her PCP (Dr. Ashton) is retiring and she is aiming to see Kam Hutton as her PCP . She has an upcoming appt with Dr. Alonso Mar 11 2019. She indicated she was referred to her over her fogginess and forgetfulness and trouble coming up with words at times and her understanding was that Dr. Alonso attributed the Ambien as a likely precipitating factor for these concerns. She was told to take melatonin at 10mg hs instead of Ambien. other night had trouble eating ice cream that nephew offered her. Admission Exam Per Admitting Provider General: no acute distress, WDWN Head: normocephalic, atraumatic Eyes: PERRL, EOM's intact, no nystagmus, conjunctiva non-injected, anicteric ENT: normal inspection external ears, nose, mucous membranes moist Neck: supple, trachea midline Lungs: clear, no respiratory distress, no wheezing/rhonchi/rales CV: RRR, no murmur, no pretibial edema Abd: normal BS, soft, non-tender Ext: no cyanosis, no calf tenderness Neuro: A&O x 3, mildly anxious appearing, ?decreased right lateral visual field (initial exam with right lateral visual field deficit followed by repeat with no reported deficit, Facial sensation is intact and symmetric, The face is strong and symmetric, Hearing grossly intact, Soft palate elevates symmetrically, +stuttering speech, Shoulder shrug intact, Tongue is midline, normal movement, no fasciculations, No pronator drift, 5/5 strength upper and lower extremities at time of exam, finger to nose intact Skin: warm, dry Principal Diagnosis PARESTHESIAS, VISUAL DISTURBANCE, LIKELY FROM MEDICATIONS Discharge Exam General- oriented x 3, not in distress, speaks in sentences with no effort or accessory muscle use Eyes- anicteric Neck- no JVD Lungs- clear breath sounds bilaterally, no rales/wheezes Heart- normal rate, regular rhythm; no murmurs Abdomen- normal bowel sounds, nondistended, soft, nontender Extremities- no pretibial edema, no calf tenderness Neuro- alert, oriented x 3; no gross focal neurologic deficits Skin- warm & dry Discharge Data Allergies Allergy/AdvReac Type Severity Reaction Status Date / Time aspirin Allergy Unknown UNKNOWN Verified 03/03/19 10:38 morphine Allergy Unknown Verified 03/03/19 10:38 shrimp Allergy Unknown HIVES Verified 03/03/19 10:38 amoxicillin AdvReac Unknown NAUSEA Verified 03/03/19 10:38 clavulanic acid AdvReac Unknown NAUSEA Verified 03/03/19 10:38 Opioid Analgesics Allergy Unknown UNKNOWN Uncoded 03/03/19 10:38 Unclassified Drugs Allergy Unknown CATS/DOGS/G Uncoded 03/03/19 10:38 RASS/TREES Consultations 03/03/19 10:30 ED Decision to Admit Stat 03/03/19 13:28 Consult Case Management - Discharge Planning Routine Consult Neurology Routine 03/04/19 15:25 Consult Psychiatry Routine Ordered Studies 03/03/19 09:14 CT head/brain wo con Stat Impression: No significant change compared to the prior study. No acute intracranial abnormality. 03/03/19 09:15 CT angio head w con Stat CT angio neck with con Stat IMPRESSION: No significant stenosis, occlusion, or dissection identified within the carotid or vertebral arteries. 03/03/19 13:28 MR brain wo con Routine IMPRESSION: No acute intracranial abnormality, specifically there is no acute or subacute infarct. Hospital Course (1) Stroke-like symptoms: per Dr. Guerin's notes: Pt is 64 y/o F with PMH DM II, HTN, dyslipidemia, anxiety, asthma, GERD presented to ER with c/o blurry vision and bilateral upper and lower paresthesias today starting at 8:00AM. Also reports stuttering and bilateral leg heaviness In ER initial P: 105 and BP: 152/122 down to 154/90 without any medications given. Corrected Na: 134 for glucose of 148. No other significant electrolyte abnormalities. Negative troponin. CTA HEAD: No significant stenosis, occlusion, or aneurysm within the [place] of [place]. CTA NECK: No significant stenosis, occlusion, or dissection identified within the carotid or vertebral arteries. -Had tele stroke eval in ER with Dr Mesa and no TPA was recommended -MRI brain-negative for any lesion -Echo: No intra-atrial shunt, interatrial septum is intact, LV systolic function is normal with EF of 60 to 65%, right ventricular systolic function is normal, left atrial and right atrial sizes are normal and no significant valvular pa thology -Lipid panel-unremarkable, A1c -7.1 - Neurologist consulted- Dr. Craig: symptoms felt to be the result of Ambien and possibly taking additional doses of Cymbalta no further intervention, medication changes Psychiatrist consulted- Dr. Gregg: recommend to stop Ambien and start Melatonin discussed with patient regarding above medication changes, emphasized importance of being careful with organizing her medications, nephew to help her, and home health services also to be arranged for her ff up with PCP and Neurologist in 1 week (2) Diabetes mellitus, type II: A1c: 6.7 on 07/04/18 -resume metformin (3) Hypertension: -Continue lisinopril/HCTZ (4) Dyslipidemia: -Continue atorvastatin (5) Asthma: -Continue albuterol prn No acute symptoms (6) Anxiety: -Continue duloxetine, bupropion (7) GERD (gastroesophageal reflux disease): -Continue PPI DVT Prophylaxis -Lovenox SQ d/c home with home health services ff up with PCP and Neurologist in 1 week Total Time Total Time Spent Total Time Spent (In Minutes): 40 MINUTES Discharge Plan Discharge Items Patient Disposition: Home - Home Health Services Reason For Visit: STROKE LIKE SYMPTOMS Discharge Diagnosis: TINGLING SENSATION, VISUAL DISTURBANCE; STROKE RULED OUT Activity: Resume your previous activity Activity Comment: RESUME ACTIVITY GRADUALLY TOLERATED Driving/Machine Use: NO DRIVING UNTIL ALLOWED BY PRIMARY CARE PHYSICIAN AND NEUROLOGIST Non-emergency contact: Primary Care Provider Call non-emergency contact if: you have any medication questions, your symptoms worsen and you have a fever Follow-up/Referrals: Heidi Ashton MD [Primary Care Provider] - Diet: Carb Consistent or DM2 and Heart Healthy Addtl Attending Provider Instructions: STOP TAKING AMBIEN. START MELATONIN 10MG AT BEDTIME. FOLLOW UP WITH PRIMARY CARE PHYSICIAN IN 1 WEEK. FOLLOW UP WITH NEUROLOGIST IN 1 WEEK. [facility] WILL BE CALLING YOU FOR AN APPOINTMENT SOON. Pending Studies at Discharge: No Stand-Alone Forms: ZMP, Smoking Cessation Medications and DC Order Prescriptions: New melatonin 10 mg tablet 10 mg PO HS Qty: 30 RF: 0 Continued atorvastatin 40 mg tablet 40 mg PO HS RF: 0 lisinopril-hydrochlorothiazide 10-12.5 mg tablet 1 tab PO QAM RF: 0 metformin 500 mg tablet extended release 24 hr 1,000 mg PO QAM RF: 0 bupropion HCl 300 mg tablet extended release 24 hr 300 mg PO QAM RF: 0 duloxetine 60 mg capsule,delayed release(DR/EC) 60 mg PO QAM RF: 0 albuterol sulfate 90 mcg/actuation Hfa Aerosol Inhaler 2 puff INHALATION QID PRN (Reason: Shortness Of Breath Or Wheezing) RF: 0 omeprazole 20 mg Tablet,Delayed Release (Dr/Ec) 20 mg PO BID RF: 0 Breo Ellipta 100-25 mcg/dose Blister With Device 1 inh INHALATION DAILY PRN (Reason: Shortness Of Breath) RF: 0 Discontinued zolpidem 10 mg tablet 5 mg PO HS RF: 0 Discharge Orders: Discharge Order (Routine); Ordered 03/05/19 Ordered By: Anastacio Zuluaga/Other Patient Handouts: Diabetes Type 2 Coping Admission Data Admit Date/Time: 03/03/19 11:15 Attending Provider: Anastacio Sims Admit Provider: Mikhail Pink Primary Care Provider: Heidi Ashton Other Providers: Yeimy Guerin ; Mikhail Craig ; Mikhail Pink ; J Carlos Qureshi I.
== END 2019-03-05 15:34 | disposition home health service (06) | DRG 918 ==
LOC: ED 09:19 → SUATTDRO 11:15 → 2W 11:15